=== PATIENT | male | born 1980 | race Caucasian/White ===

== ENCOUNTER 2016-07-21 16:26 | Inpatient (IN) | payer OTHER ==
[2016-07-21] MEDS ORDERED: ENOXAPARIN 150 MG/ML SYRINGE SQ STA (17:04)
[2016-07-21] MEDS ORDERED: DILTIAZEM 125 MG in SODIUM CHLORIDE 0.9% 100 ML IV STA (17:04)
[2016-07-21 17:21] LABS: Basophils % (A) 0 %; CH 30.6; CHCM 34.8; Eosinophils # (A) 0.1 k/uL (0-0.7); Eosinophils % (A) 1 %; HDW 2.71; HGB 17.6 gm/dL (13.0-17.5); Luc # (Auto) 0.22; Luc % (Auto) 2; Lymphocytes # (A) 1.9 k/uL (1.0-4.8); Lymphocytes % (A) 16 %; MCH 29.9 pg (25.0-35.0); MCHC 33.8 g/dL (31.0-37.0); MCV 88.4 fL (80.0-100.0); Monocytes # (A) 0.7 k/uL (0-1.0); Monocytes % (A) 6 %; Neutrophils # (A) 8.6 k/uL (1.3-7.7); Neutrophils % (A) 74 %; RBC 5.88 m/uL (4.30-5.90); RDW 13.5 % (11.5-15.5); WBC 11.6 k/uL (3.8-10.6); WBC (Perox) 11.89
[2016-07-21 17:28] LABS: INR 1.2 (<1.1); Partial Thromboplastin Time 23.4 sec (22.0-30.0); Prothrombin Time 11.6 sec (9.0-12.0)
[2016-07-21 17:34] LABS: ALT 39 U/L (21-72); AST 31 U/L (17-59); Alkaline Phosphatase 67 U/L (38-126); Anion Gap 11 mmol/L; Blood Urea Nitrogen 13 mg/dL (9-20); Calcium 9.4 mg/dL (8.4-10.2); Carbon Dioxide 26 mmol/L (22-30); Chloride 104 mmol/L (98-107); Glucose 113 mg/dL (74-99); Magnesium 1.7 mg/dL (1.6-2.3); Non-African American GFR(MDRD) >60 (>60 ml/min/1.73 sqM); Potassium 4.1 mmol/L (3.5-5.1); Sodium 141 mmol/L (137-145); Total Bilirubin 0.8 mg/dL (0.2-1.3); Total Protein 7.8 g/dL (6.3-8.2)
--- NOTE | 2016-07-21 17:35 | ED ---
General Adult HPI - General Chief complaint: Arrhythmia/Palpitations Stated complaint: Abnormal EKG Time Seen by Provider: 07/21/16 16:54 Source: patient Mode of arrival: wheelchair Limitations: no limitations - History of Present Illness Initial comments: This patient is a 35-year-old man who comes to be evaluated from his doctor's clinic. He had gone to see his physician regarding some generalized headaches and not feeling well for the past couple of days. When he was seen at the clinic they found his heart rate was rapid and irregular, they reportedly did an EKG that showed atrial fibrillation and sent here for further evaluation and treatment. The patient states that he has not had any chest symptoms, including no chest pain, dyspnea, palpitations, lightheadedness or syncope. He has not had nausea or vomiting. The patient does state that he just has not been feeling well and then he said a diffuse headache, though not worst headache of life. He has not had any neurologic symptoms. The patient has no known history of atrial fibrillation. -: days(s) Location: head Radiation: non-radiation Quality: dull Consistency: constant Improves with: none Worsens with: none Associated Symptoms: denies other symptoms Treatments Prior to Arrival: none - Related Data Home Medications Medication Instructions Recorded Confirmed Ascorbic Acid [Vitamin C] 1,000 mg PO DAILY 07/21/16 07/21/16 Cholecalciferol [Vitamin D3] 1,000 unit PO DAILY 07/21/16 07/21/16 FLUoxetine HCL [PROzac] 20 mg PO DAILY 07/21/16 07/21/16 Ibuprofen [Motrin] 600 mg PO Q8HR PRN 07/21/16 07/21/16 [place]-3 Fatty Acids/Fish Oil [Fish 1 cap PO DAILY 07/21/16 07/21/16 Oil 1,000 mg Softgel] Thiamine [Vitamin B-1] 100 mg PO DAILY 07/21/16 07/21/16 Allergies Allergy/AdvReac Type Severity Reaction Status Date / Time erythromycin base Allergy Rash/Hives Verified 07/21/16 17:07 Penicillins Allergy Rash/Hives Verified 07/21/16 17:07 Review of Systems ROS Statement: Those systems with pertinent positive or pertinent negative responses have been documented in the HPI. ROS Other: All systems not noted in ROS Statement are negative. Constitutional: Denies: fever, weakness Respiratory: Denies: cough, dyspnea Cardiovascular: Denies: chest pain, palpitations, orthopnea, syncope Gastrointestinal: Denies: abdominal pain, vomiting, diarrhea, melena, hematochezia Genitourinary: Denies: dysuria, hematuria Musculoskeletal: Denies: back pain Skin: Denies: rash Neurological: Reports: as per HPI, headache. Denies: weakness, numbness Past Medical History Past Medical History: No Reported History Additional Past Medical History / Comment(s): depression History of Any Multi-Drug Resistant Organisms: None Reported Past Surgical History: Hernia Repair Past Psychological History: Depression Smoking Status: Light tobacco smoker Past Alcohol Use History: Occasional Past Drug Use History: None Reported General Exam Limitations: no limitations General appearance: alert, in no apparent distress, obese Head exam: Present: atraumatic, normocephalic Eye exam: Present: normal appearance, PERRL, EOMI. Absent: scleral icterus, conjunctival injection, nystagmus ENT exam: Present: normal oropharynx Neck exam: Present: normal inspection. Absent: tenderness, meningismus Respiratory exam: Present: normal lung sounds bilaterally. Absent: respiratory distress, wheezes, rales, rhonchi, stridor, chest wall tenderness Cardiovascular Exam: Present: tachycardia, irregular rhythm, normal heart sounds. Absent: systolic murmur, diastolic murmur, rubs, gallop GI/Abdominal exam: Present: soft. Absent: distended, tenderness, guarding, rebound Extremities exam: Present: normal inspection, normal capillary refill. Absent: pedal edema, calf tenderness Neurological exam: Present: alert, oriented X3. Absent: motor sensory deficit Skin exam: Present: warm, dry, intact, normal color. Absent: rash Course Vital Signs 07/21/16 07/21/16 16:32 17:53 Temperature 98.4 F 99.3 F Pulse Rate 53 L 93 Respiratory 18 18 Rate Blood Pressure 141/84 124/60 O2 Sat by Pulse 95 99 Oximetry EKG Findings - EKG Results: EKG: interpreted by ERMD, normal axis, normal QRS, normal ST/T EKG shows: tachycardia (Rate 126 bpm), atrial fibrillation Medical Decision Making - Lab Data Result diagrams: 07/21/16 17:03 07/21/16 17:03 Lab Results 07/21/16 07/21/16 07/21/16 Range/Units 17:03 17:03 17:03 WBC 11.6 H (3.8-10.6) k/uL RBC 5.88 (4.30-5.90) m/uL Hgb 17.6 H (13.0-17.5) gm/dL Hct 52.0 (39.0-53.0) % MCV 88.4 (80.0-100.0) fL MCH 29.9 (25.0-35.0) pg MCHC 33.8 (31.0-37.0) g/dL RDW 13.5 (11.5-15.5) % Plt Count 291 (150-450) k/uL Neutrophils % 74 % Lymphocytes % 16 % Monocytes % 6 % Eosinophils % 1 % Basophils % 0 % Neutrophils # 8.6 H (1.3-7.7) k/uL Lymphocytes # 1.9 (1.0-4.8) k/uL Monocytes # 0.7 (0-1.0) k/uL Eosinophils # 0.1 (0-0.7) k/uL Basophils # 0.0 (0-0.2) k/uL PT (9.0-12.0) sec INR (<1.1) APTT (22.0-30.0) sec Sodium 141 (137-145) mmol/L Potassium 4.1 (3.5-5.1) mmol/L Chloride 104 (98-107) mmol/L Carbon Dioxide 26 (22-30) mmol/L Anion Gap 11 mmol/L BUN 13 (9-20) mg/dL Creatinine 0.70 (0.66-1.25) mg/dL Est GFR (MDRD) Af Amer >60 (>60 ml/min/1.73 sqM) Est GFR (MDRD) Non-Af >60 (>60 ml/min/1.73 sqM) Glucose 113 H (74-99) mg/dL Calcium 9.4 (8.4-10.2) mg/dL Magnesium 1.7 (1.6-2.3) mg/dL Total Bilirubin 0.8 (0.2-1.3) mg/dL AST 31 (17-59) U/L ALT 39 (21-72) U/L Alkaline Phosphatase 67 (38-126) U/L Total Creatine Kinase 46 L (55-170) U/L CK-MB (CK-2) 0.6 (0.0-2.4) ng/mL CK-MB (CK-2) Rel Index 1.3 Troponin I <0.012 (0.000-0.034) ng/mL Total Protein 7.8 (6.3-8.2) g/dL Albumin 4.0 (3.5-5.0) g/dL TSH 0.837 (0.465-4.680) mIU/L 07/21/16 Range/Units 17:03 WBC (3.8-10.6) k/uL RBC (4.30-5.90) m/uL Hgb (13.0-17.5) gm/dL Hct (39.0-53.0) % MCV (80.0-100.0) fL MCH (25.0-35.0) pg MCHC (31.0-37.0) g/dL RDW (11.5-15.5) % Plt Count (150-450) k/uL Neutrophils % % Lymphocytes % % Monocytes % % Eosinophils % % Basophils % % Neutrophils # (1.3-7.7) k/uL Lymphocytes # (1.0-4.8) k/uL Monocytes # (0-1.0) k/uL Eosinophils # (0-0.7) k/uL Basophils # (0-0.2) k/uL PT 11.6 (9.0-12.0) sec INR 1.2 (<1.1) APTT 23.4 (22.0-30.0) sec Sodium (137-145) mmol/L Potassium (3.5-5.1) mmol/L Chloride (98-107) mmol/L Carbon Dioxide (22-30) mmol/L Anion Gap mmol/L BUN (9-20) mg/dL Creatinine (0.66-1.25) mg/dL Est GFR (MDRD) Af Amer (>60 ml/min/1.73 sqM) Est GFR (MDRD) Non-Af (>60 ml/min/1.73 sqM) Glucose (74-99) mg/dL Calcium (8.4-10.2) mg/dL Magnesium (1.6-2.3) mg/dL Total Bilirubin (0.2-1.3) mg/dL AST (17-59) U/L ALT (21-72) U/L Alkaline Phosphatase (38-126) U/L Total Creatine Kinase (55-170) U/L CK-MB (CK-2) (0.0-2.4) ng/mL CK-MB (CK-2) Rel Index Troponin I (0.000-0.034) ng/mL Total Protein (6.3-8.2) g/dL Albumin (3.5-5.0) g/dL TSH (0.465-4.680) mIU/L Disposition Clinical Impression: Atrial fibrillation Disposition: ADMITTED IP TO THIS HOSP Condition: Fair
[2016-07-21 17:42] LABS: Creatine Kinase 46 U/L (55-170)
[2016-07-21 17:54] LABS: Creatine Kinase MB 0.6 ng/mL (0.0-2.4); Troponin I <0.012 ng/mL (0.000-0.034)
--- NOTE | 2016-07-21 18:04 | XR ---
EXAMINATION TYPE: XR chest 2V DATE OF EXAM: 07/21/2016 5:35 PM COMPARISON: NONE HISTORY: Abnormal cardiogram TECHNIQUE: Frontal and lateral views of the chest are obtained. FINDINGS: There is no heart failure nor confluent pneumonic infiltrate. There are no hilar masses. C ostophrenic angles are clear. There are chest leads. Bony thorax appears intact. IMPRESSION: Normal chest.
[2016-07-21] MEDS ORDERED: HEPARIN SODIUM,PORCINE 5,000 UNIT/ML 1 ML VIAL IV ONE (19:01)
[2016-07-21] MEDS ORDERED: NITROGLYCERIN SL TABS 0.4 MG TAB SUBLINGUAL PRN (19:01)
[2016-07-21] MEDS ORDERED: HEPARIN SODIUM,PORCINE 5,000 UNIT/ML 1 ML VIAL IV PRN (19:01)
[2016-07-21] MEDS: HEPARIN SODIUM,PORCINE/D5W PMX 25,000 UNIT in DEXTROSE/WATER 1 500ML.BAG IV SCH (19:44)
[2016-07-21 21:35] VITALS: BMI 53.0
[2016-07-21 23:23] LABS: Creatine Kinase 44 U/L (55-170)
[2016-07-21 23:37] LABS: Creatine Kinase MB 0.5 ng/mL (0.0-2.4); Troponin I <0.012 ng/mL (0.000-0.034)
[2016-07-22 06:04] LABS: Basophils # (A) 0.1 k/uL (0-0.2); Basophils % (A) 1 %; CH 29.1; CHCM 32.1; Eosinophils # (A) 0.1 k/uL (0-0.7); Eosinophils % (A) 1 %; HCT 47.7 % (39.0-53.0); HDW 2.59; HGB 15.5 gm/dL (13.0-17.5); Luc # (Auto) 0.32; Luc % (Auto) 3; Lymphocytes # (A) 2.4 k/uL (1.0-4.8); Lymphocytes % (A) 20 %; MCH 29.6 pg (25.0-35.0); MCHC 32.4 g/dL (31.0-37.0); MCV 91.2 fL (80.0-100.0); Mean Platelet Volume 6.4; Monocytes # (A) 0.7 k/uL (0-1.0); Monocytes % (A) 6 %; Neutrophils # (A) 8.5 k/uL (1.3-7.7); Neutrophils % (A) 70 %; RBC 5.23 m/uL (4.30-5.90); RDW 13.6 % (11.5-15.5); WBC 12.1 k/uL (3.8-10.6); WBC (Perox) 12.58
[2016-07-22 06:08] LABS: Cholesterol 141 mg/dL (<200); HDL Cholesterol 38 mg/dL (40-60); Triglycerides 87 mg/dL (<150)
[2016-07-22 06:15] LABS: Creatine Kinase 40 U/L (55-170)
[2016-07-22 06:28] LABS: Creatine Kinase MB 0.4 ng/mL (0.0-2.4); Troponin I <0.012 ng/mL (0.000-0.034)
[2016-07-22] MEDS ORDERED: ASPIRIN 325 MG TAB PO SCH (09:00)
[2016-07-22] MEDS ORDERED: NON-FORMULARY DRUG (Omega-3 Fatty Acids/Fish Oil [Fish Oil 1,000 Mg Softgel] 1 CAP) PO SCH (09:00)
[2016-07-22] MEDS: FLUoxetine HCL 20 MG CAP PO SCH (09:51)
[2016-07-22] MEDS: FAMOTIDINE 20 MG TAB PO SCH (09:51)
[2016-07-22] MEDS: METOPROLOL TARTRATE 25 MG TAB PO SCH ×2 (09:52→20:17)
[2016-07-22] MEDS: NICOTINE 14MG/24HR PATCH TRANSDERM SCH (09:52)
[2016-07-22] MEDS: ASCORBIC ACID 500 MG TAB PO SCH (11:46)
[2016-07-22] MEDS: THIAMINE 100 MG TAB PO SCH (11:47)
[2016-07-22] MEDS: CHOLECALCIFEROL 1,000 UNIT TAB PO SCH (11:47)
--- NOTE | 2016-07-22 11:54 | P.CRDCN ---
History of Present Illness Consult date: 07/22/16 Requesting physician: Benjamin Zuluaga Consult reason: atrial fibrillation Chief complaint: Headache History of present illness: This is a pleasant 35-year-old gentleman with no prior documented history of hypertension, no diabetes, no hyperlipidemia, pt. does smoke , morbidly obese, who states that he was experiencing a headache and for this reason he went to his primary care doctor for further evaluation. As she was performing his physical exam she noted that his heart rate was beating fast and irregular, EKG was performed which showed atrial fibrillation and he was directed to come to the emergency room for admission. A shunt states he never feels some palpitations, no chest discomfort, no shortness of breath. He does state occasionally that when he goes from a sitting to standing position he gets mildly dizzy. According to the patient, he does drink 2-3 energy drinks per day as well as Cola. EKG on admission here showed atrial fibrillation with a rapid ventricular response. Chest x-ray normal. B/P on arrival 140/80 with a heart rate in the 90s. White blood cell count level 11.6, hemoglobin 17.6, potassium 4.1, BUN 13, creatinine 0.7. Troponins negative3. Time of my examination this morning, patient continues to be in atrial fibrillation, heart rate in the 70s. On a Cardizem drip at 5 mg per hour along with the heparin drip. Past Medical History Past Medical History: No Reported History Additional Past Medical History / Comment(s): depression History of Any Multi-Drug Resistant Organisms: None Reported Past Surgical History: Hernia Repair Past Psychological History: Depression Smoking Status: Light tobacco smoker Past Alcohol Use History: Occasional Past Drug Use History: None Reported Medications and Allergies Home Medications Medication Instructions Recorded Confirmed Type Ascorbic Acid [Vitamin C] 1,000 mg PO DAILY 07/21/16 07/21/16 History Cholecalciferol [Vitamin D3] 1,000 unit PO DAILY 07/21/16 07/21/16 History FLUoxetine HCL [PROzac] 20 mg PO DAILY 07/21/16 07/21/16 History Ibuprofen [Motrin] 600 mg PO Q8HR PRN 07/21/16 07/21/16 History [place]-3 Fatty Acids/Fish Oil [Fish 1 cap PO DAILY 07/21/16 07/21/16 History Oil 1,000 mg Softgel] Thiamine [Vitamin B-1] 100 mg PO DAILY 07/21/16 07/21/16 History Allergies Allergy/AdvReac Type Severity Reaction Status Date / Time erythromycin base Allergy Rash/Hives Verified 07/21/16 17:07 Penicillins Allergy Rash/Hives Verified 07/21/16 17:07 Physical Exam Vitals: Vital Signs Temp Pulse Pulse Resp BP BP Pulse Ox 07/22/16 11:21 97.4 F L 74 16 125/82 96 07/22/16 08:00 97.9 F 62 14 126/77 96 07/22/16 04:00 76 18 106/57 99 07/22/16 00:00 97.5 F L 82 18 105/53 97 07/21/16 20:45 97.3 F L 74 18 123/70 95 07/21/16 19:48 98.0 F 92 18 98/55 98 Intake and Output 07/21/16 07/22/16 07/22/16 22:59 06:59 14:59 Intake Total 353 0 Output Total 500 Balance 353 -500 Intake: IV 160 Heparin Sodium,Porcine/ 160 D5w Pmx 25,000 unit In Dextrose/Water 1 500ml. bag @ 5.639 UNITS/KG/HR 20 mls/hr IV .Q24H [facility] Rx #:[id number] Intake, IV Titration 193 Amount Diltiazem 125 mg In 40 Sodium Chloride 0.9% 100 ml @ 5 MG/HR 5 mls/hr IV .Q24H STA Rx#:[id number] Heparin Sodium,Porcine/ 153 D5w Pmx 25,000 unit In Dextrose/Water 1 500ml. bag @ 5.639 UNITS/KG/HR 20 mls/hr IV .Q24H [facility] Rx #:[id number] Oral 0 Output: Urine 500 Other: Voiding Method Toilet Toilet Urinal Urinal Weight 177.355 kg 176.5 kg PHYSICAL EXAMINATION: HEENT: Head is atraumatic, normocephalic. Pupils equal, round. Neck is supple. There is no elevated jugular venous pressure. HEART EXAMINATION: [place] to S1-S2 irregularly irregular CHEST EXAMINATION: Lungs are clear to auscultation and precussion. No chest wall tenderness is noted on palpation or with deep breathing. ABDOMEN: Soft, obese, nontender. Bowel sounds are heard. No organomegaly noted. EXTREMITIES: 2+ peripheral pulses with trace evidence of peripheral edema and no calf tenderness noted. NEUROLOGIC patient is awake, alert and oriented -3. . Results 07/22/16 05:28 07/21/16 17:03 Cardiac Enzymes 07/21/16 07/22/16 Range/Units 22:37 05:28 CK-MB (CK-2) 0.5 0.4 (0.0-2.4) ng/mL Troponin I <0.012 <0.012 (0.000-0.034) ng/mL Coagulation 07/22/16 07/22/16 Range/Units 01:19 09:42 APTT 28.5 30.5 H (22.0-30.0) sec Lipids 07/22/16 Range/Units 05:28 Triglycerides 87 (<150) mg/dL Cholesterol 141 (<200) mg/dL HDL Cholesterol 38 L (40-60) mg/dL CBC 07/22/16 Range/Units 05:28 WBC 12.1 H (3.8-10.6) k/uL RBC 5.23 (4.30-5.90) m/uL Hgb 15.5 (13.0-17.5) gm/dL Hct 47.7 (39.0-53.0) % Plt Count 228 (150-450) k/uL Current Medications Generic Name Dose Route Start Last Admin Trade Name Freq PRN Reason Stop Dose Admin Ascorbic Acid 1,000 mg 07/22/16 12:00 Vitamin C PO DAILY@1200 [facility] Aspirin 325 mg 07/22/16 09:00 07/22/16 09:51 Aspirin PO 325 mg DAILY ABHISHEK Administration Cholecalciferol 1,000 unit 07/22/16 12:00 Vitamin D3 PO DAILY@1200 ABHIS[facility]K Famotidine 20 mg 07/22/16 09:00 07/22/16 09:51 Pepcid PO 20 mg DAILY ABHISHEK Administration Fluoxetine HCl 20 mg 07/22/16 09:00 07/22/16 09:51 Prozac PO 20 mg DAILY AB[facility]K Administration Heparin Sodium (Porcine) 0 unit 07/21/16 19:01 Heparin IV PER PROTOCOL PRN Low PTT Protocol Diltiazem HCl 125 mg/ Sodium 125 mls @ 5 mls/hr 07/21/16 17:04 07/21/16 17:21 Chloride IV 07/22/16 17:03 5 mg/hr .Q24H STA 5 mls/hr Protocol Administration 5 MG/HR Heparin Sodium/Dextrose 25,000 500 mls @ 20 mls/hr 07/21/16 19:15 07/22/16 03 :23 unit/ IV Solution IV 8.7 units/kg/hr .Q24H ABHISHEK 30.85 mls/hr Protocol Titration 5.639 UNITS/KG/HR Metoprolol Tartrate 25 mg 07/22/16 09:00 07/22/16 09:52 Lopressor PO 25 mg BID ABHISHEK Administration Nicotine 1 patch 07/22/16 09:00 07/22/16 09:52 Habitrol 14mg/24hr Patch TRANSDERM Not Given DAILY ABHISHEK Nitroglycerin 0.4 mg 07/21/16 19:01 Nitrostat SUBLINGUAL Q5M PRN Chest Pain Thiamine HCl 100 mg 07/22/16 12:00 Vitamin B-1 PO DAILY@1200 [facility] Intake and Output 07/21/16 07/22/16 07/22/16 22:59 06:59 14:59 Intake Total 353 0 Output Total 500 Balance 353 -500 Intake: IV 160 Heparin Sodium,Porcine/ 160 D5w Pmx 25,000 unit In Dextrose/Water 1 500ml. bag @ 5.639 UNITS/KG/HR 20 mls/hr IV .Q24H [facility] Rx #:[id number] Intake, IV Titration 193 Amount Diltiazem 125 mg In 40 Sodium Chloride 0.9% 100 ml @ 5 MG/HR 5 mls/hr IV .Q24H STA Rx#:[id number] Heparin Sodium,Porcine/ 153 D5w Pmx 25,000 unit In Dextrose/Water 1 500ml. bag @ 5.639 UNITS/KG/HR 20 mls/hr IV .Q24H [facility] Rx #:[id number] Oral 0 Output: Urine 500 Other: Voiding Method Toilet Toilet Urinal Urinal Weight 177.355 kg 176.5 kg 07/22/16 05:28 EKG Interpretations (text) EKG shows atrial fibrillation with a rapid ventricular response Assessment and Plan Plan: Assessment and plan #1 atrial fibrillation with rapid ventricular response, appears to be of new onset. #2 cardiac risk factors negative for hypertension, no diabetes, no hyperlipidemia,. Patient does drink 3-4 energy drinks a day. #3 obesity #4 nicotine dependence Plan We will obtain a free T4 and TSH level. Request echocardiogram with Doppler study be performed. Discontinue aspirin. Discontinue Cardizem drip and continue metoprolol tartrate 25 one tablet by mouth twice a day. Further recommendations to follow. DNP note has been reviewed, I agree with a documented findings and plan of care. Patient was seen and examined.
--- NOTE | 2016-07-22 12:10 | P.HPIM ---
<Kimberley Mann - Last Filed: 07/22/16 10:59> History of Present Illness H&P Date: 07/22/16 Chief Complaint: A-Fib This is a 35-year-old male with a history of obesity, depression, and obstructive sleep apnea. He is a patient of Dr. Cabrera. He presented to the clinic with a chief complaint of of headaches. During the exam he was found to have an irregular heart rate, an EKG was performed and showed atrial fibrillation with RVR. He was sent to the hospital for evaluation for new onset of A. fib with RVR. He reported for the last few weeks he has been waking up with a pounding headache that lasts throughout the day. He states the pain starts in the top of his head and extends down to the occipital lobe. He also reports some dizziness and photosensitivity. He has been taking Motrin and Tylenol but states it has not helped the headaches. He does have a CPAP machine at home for his sleep apnea and wears it about 5 nights a week but needs a new facemask for the machine. During his hospital stay, he was started on a heparin and Cardizem drip. Cardiology was consulted. He remains in atrial fibrillation and is currently rate controlled with a rate in the 70s. He has had 3 sets of troponins, all were negative. Chest x-ray showed no heart failure , no infiltrate, normal chest. Echo was completed but results are not back. Patient reports he is feeling well and denies any chest pain or shortness of breath. Review of Systems Constitutional: Reports daytime sleepiness, Denies as per HPI, Denies anorexia, Denies chills, Denies chronic headaches, Denies chronic pain, Denies fatigue, Denies fever, Denies lethargy, Denies malaise, Denies night sweats, Denies poor appetite, Denies sweats, Denies weakness, Denies weight gain, Denies weight loss Eyes: denies blurred vision, denies discharge, denies irritation, denies itching , denies pain, denies loss of vision Ears, nose, mouth and throat: Denies as per HPI, Denies ant. neck pain, Denies bleeding gums, Denies dental pain, Denies dysphagia, Denies epistaxis, Denies headache, Denies hoarseness, Denies mouth pain, Denies nasal congestion, Denies nasal discharge, Denies neck fullness/pressure, Denies neck lump, Denies nose pain, Denies odynophagia, Denies post-nasal drip, Denies sinus pain, Denies sinus pressure, Denies swelling in mouth, Denies swelling in throat, Denies sore throat, Denies vertigo, Denies voice changes Cardiovascular: Reports irregular heart beat, Reports palpitations, Reports rapid heart beat, Denies as per HPI, Denies chest pain, Denies claudication, Denies decreased exercise tolerance, Denies dyspnea on exertion, Denies edema, Denies high blood pressure, Denies leg edema, Denies lightheadedness, Denies orthopnea, Denies paroxysmal nocturnal dyspnea, Denies phlebitis, Denies shortness of breath, Denies syncope Respiratory: Denies as per HPI, Denies congestion, Denies cough, Denies cough with sputum, Denies dyspnea, Denies excessive sputum, Denies hemoptysis, Denies home oxygen, Denies pain, Denies pain on inspiration, Denies pleurisy, Denies respiratory infections, Denies sleep apnea, Denies snoring, Denies wheezing Gastrointestinal: Denies as per HPI, Denies abdominal pain, Denies belching, Denies bloating, Denies BRBPR, Denies change in bowel habits, Denies coffee ground emesis, Denies constipation, Denies diarrhea, Denies dyspepsia, Denies early satiety, Denies excessive gas, Denies heartburn, Denies hematemesis, Denies hematochezia, Denies indigestion, Denies jaundice, Denies lactose intolerance, Denies loss of appetite, Denies melena, Denies nausea, Denies vomiting Genitourinary: Denies as per HPI, Denies decreased libido, Denies difficulties fathering child, Denies discharge, Denies dysuria, Denies erectile dysfunction, Denies flank pain, Denies genital pain, Denies genital sores, Denies hematuria, Denies impotence, Denies incontinence, Denies kidney stones, Denies nocturia, Denies polyuria, Denies testicular lump, Denies testicular pain, Denies urinary frequency, Denies urinary hesitancy, Denies urinary retention Musculoskeletal: Reports arm numbness/tingling (hx of carpal tunnel), Denies as per HPI, Denies atrophy, Denies fractures, Denies frequent falls, Denies gait dysfunction, Denies hot joints, Denies leg numbness/tingling, Denies limitation of motion, Denies loss of height, Denies low back pain, Denies morning stiffness , Denies muscle cramps, Denies muscle weakness, Denies myalgias, Denies neck pain, Denies neck stiffness, Denies prior amputations, Denies redness of joints , Denies shooting arm pain, Denies shooting leg pain Musculoskeletal: bilateral: hand pain, hand stiffness, absent: ankle pain, ankle stiffness, ankle swelling, elbow pain, elbow stiffness, elbow swelling, foot pain, foot stiffness, foot swelling, hand swelling, hip pain, hip stiffness , hip swelling, knee pain, knee stiffness, knee swelling, shoulder pain, shoulder stiffness, shoulder swelling Integumentary: Denies as per HPI, Denies acne, Denies boils, Denies brittle nails, Denies change in hair/nails, Denies color changes, Denies darkening of skin, Denies depigmentation, Denies dryness, Denies foot/leg ulcers, Denies growths, Denies hirsutism, Denies lesions, Denies onychomycosis, Denies pruritus , Denies rash, Denies sores, Denies striae, Denies unusual bruising, Denies wounds Neurological: Reports headaches, Denies as per HPI, Denies aphasia, Denies ataxia, Denies balance difficulties, Denies burning pain, Denies change in mentation, Denies change in smell/taste, Denies change in speech, Denies confusion, Denies convulsions, Denies double vision, Denies gait dysfunction, Denies head injury, Denies hearing difficulties, Denies lack of coordination, Denies loss of vision, Denies memory loss, Denies migraines, Denies motor disturbance, Denies numbness, Denies paralysis, Denies paresthesias, Denies seizures, Denies sensory deficit, Denies spasticity, Denies syncope, Denies tic , Denies tingling, Denies transient paralysis, Denies tremors, Denies vertigo, Denies weakness, Denies visual changes Psychiatric: Reports depression, Reports insomnia, Denies as per HPI, Denies anhedonia, Denies anxiety, Denies anxiety attacks, Denies change in appetite, Denies change in libido, Denies change in sleep habits, Denies confusion, Denies difficulty concentrating, Denies disorientation, Denies hallucinations, Denies hopelessness, Denies hypersomnia, Denies irritability, Denies memory loss , Denies mood swings, Denies paranoia, Denies sadness/tearfulness, Denies sleep disturbances, Denies suicidal ideation Endocrine: Reports high blood sugars, Denies as per HPI, Denies cold intolerance , Denies deepening of the voice, Denies excessive sweating, Denies excessive thirst, Denies fatigue, Denies flushing, Denies heat intolerance, Denies increase in ring/shoe/hat size, Denies low blood sugars, Denies nocturia, Denies palpitations, Denies polydipsia, Denies polyphagia, Denies polyuria, Denies proptosis, Denies recent glucocorticoid use, Denies thyroid mass, Denies weight change Hematologic/Lymphatic: Denies as per HPI, Denies easy bleeding, Denies easy bruising, Denies lymphadenopathy, Denies lymphedema, Denies thrombophilia Allergic/Immunologic: Denies as per HPI, Denies allergic rhinitis, Denies anaphylaxis, Denies angioedema, Denies gluten intolerance, Denies persistent infections, Denies seasonal allergies, Denies urticaria, Denies wheezing Past Medical History Past Medical History: No Reported History, Sleep Apnea/CPAP/BIPAP Additional Past Medical History / Comment(s): depression History of Any Multi-Drug Resistant Organisms: None Reported Past Surgical History: Hernia Repair Past Psychological History: Depression Smoking Status: Light tobacco smoker Past Alcohol Use History: Occasional Past Drug Use History: None Reported - Past Family History Mother Family Medical History: Cancer (Lung and throat cancer at age 52) Father Family Medical History: No Reported History (alive and well) Medications and Allergies Home Medications Medication Instructions Recorded Confirmed Type Ascorbic Acid [Vitamin C] 1,000 mg PO DAILY 07/21/16 07/21/16 History Cholecalciferol [Vitamin D3] 1,000 unit PO DAILY 07/21/16 07/21/16 History FLUoxetine HCL [PROzac] 20 mg PO DAILY 07/21/16 07/21/16 History Ibuprofen [Motrin] 600 mg PO Q8HR PRN 07/21/16 07/21/16 History [place]-3 Fatty Acids/Fish Oil [Fish 1 cap PO DAILY 07/21/16 07/21/16 History Oil 1,000 mg Softgel] Thiamine [Vitamin B-1] 100 mg PO DAILY 07/21/16 07/21/16 History Allergies Allergy/AdvReac Type Severity Reaction Status Date / Time erythromycin base Allergy Rash/Hives Verified 07/21/16 17:07 Penicillins Allergy Rash/Hives Verified 07/21/16 17:07 Physical Exam Vitals: Vital Signs Temp Pulse Pulse Resp BP BP Pulse Ox 07/22/16 08:00 97.9 F 62 14 126/77 96 07/22/16 04:00 76 18 106/57 99 07/22/16 00:00 97.5 F L 82 18 105/53 97 07/21/16 20:45 97.3 F L 74 18 123/70 95 07/21/16 19:48 98.0 F 92 18 98/55 98 Intake and Output 07/21/16 07/22/16 07/22/16 22:59 06:59 14:59 Intake Total 353 0 Output Total 500 Balance 353 -500 Intake: IV 160 Heparin Sodium,Porcine/ 160 D5w Pmx 25,000 unit In Dextrose/Water 1 500ml. bag @ 5.639 UNITS/KG/HR 20 mls/hr IV .Q24H [facility] Rx #:[id number] Intake, IV Titration 193 Amount Diltiazem 125 mg In 40 Sodium Chloride 0.9% 100 ml @ 5 MG/HR 5 mls/hr IV .Q24H [facility] Rx#:[id number] Heparin Sodium,Porcine/ 153 D5w Pmx 25,000 unit In Dextrose/Water 1 500ml. bag @ 5.639 UNITS/KG/HR 20 mls/hr IV .Q24H [facility] Rx #:[id number] Oral 0 Output: Urine 500 Other: Voiding Method Toilet Toilet Urinal Urinal Weight 177.355 kg 176.5 kg General appearance: Patient is a 35-year-old male well-developed, well-nourished , no acute distress HEENT: Normocephalic, atraumatic, pupils equal round reactive to light, oropharynx is clear. Neck: Supple, trachea is midline, no lymphadenopathy, tenderness, or thyromegaly. Cardiovascular: Irregular rhythm, normal heart sounds. No S3 or S4. No systolic or diastolic murmur, rubs or gallop. GI: Abdomen is soft, distended due to obesity, positive bowel sounds, nontender , no masses, no rebound, no organomegaly. Extremities: No significant deformity, no joint abnormalities, no edema, peripheral pulses are intact, no calf tenderness Neurological: Cranial nerves II through XII are intact, strength and sensation symmetric and intact, patient is alert and oriented to person place and time. No focal defects noted. Skin: Warm dry and intact no rashes noted. Results CBC & Chem 7: 07/22/16 05:28 07/21/16 17:03 Labs: Abnormal Lab Results - Last 24 Hours (Table) 07/21/16 07/22/16 07/22/16 Range/Units 22:37 05:28 05:28 WBC 12.1 H (3.8-10.6) k/uL Neutrophils # 8.5 H (1.3-7.7) k/uL Total Creatine Kinase 44 L 40 L (55-170) U/L HDL Cholesterol (40-60) mg/dL 07/22/16 Range/Units 05:28 WBC (3.8-10.6) k/uL Neutrophils # (1.3-7.7) k/uL Total Creatine Kinase (55-170) U/L HDL Cholesterol 38 L (40-60) mg/dL Thrombosis Risk Factor Assmnt - DVT/VTE Prophylaxis DVT/VTE Prophylaxis: Pharmacologic Prophylaxis ordered - Choose All That Apply Any of the Below Risk Factors Present?: No Assessment and Plan (1) Atrial fibrillation Status: Acute Plan: Impression and plan: 1. Atrial fibrillation with RVR: Will start metoprolol 25 mg twice a day and plan to wean off Cardizem and heparin. Awaiting echo and Doppler results. Cardiology was consulted. 2. Obstructive sleep apnea: He'll continue to wear his CPAP at at bedtime, discussed being more compliant and obtaining a new facemask. 3. Hyperglycemia: Will continue to monitor. No history of diabetes. 4. Polycythemia: Most likely due to his obstructive sleep apnea, we'll continue to monitor. 5. Tobacco use: Discussed smoking cessation, nicotine patch is ordered. 6. GI prophylaxis: Continue Pepcid. 7. DVT prophylaxis: Continue heparin drip. <Benjamin Zuluaga - Last Filed: 07/22/16 16:03> Physical Exam Vitals: Vital Signs Temp Pulse Pulse Resp BP BP Pulse Ox 07/22/16 12:00 74 16 07/22/16 11:21 97.4 F L 74 16 125/82 96 07/22/16 08:00 97.9 F 62 14 126/77 96 07/22/16 04:00 76 18 106/57 99 07/22/16 00:00 97.5 F L 82 18 105/53 97 07/21/16 20:45 97.3 F L 74 18 123/70 95 07/21/16 19:48 98.0 F 92 18 98/55 98 Intake and Output 07/22/16 07/22/16 07/22/16 06:59 14:59 22:59 Intake Total 353 693.148 Output Total 500 Balance 353 193.148 Intake: IV 160 Heparin Sodium,Porcine/ 160 D5w Pmx 25,000 unit In Dextrose/Water 1 500ml. bag @ 5.639 UNITS/KG/HR 20 mls/hr IV .Q24H [facility] Rx #:[id number] Intake, IV Titration 193 333.148 Amount Diltiazem 125 mg In 40 Sodium Chloride 0.9% 100 ml @ 5 MG/HR 5 mls/hr IV .Q24H [facility] Rx#:[id number] Heparin Sodium,Porcine/ 153 333.148 D5w Pmx 25,000 unit In Dextrose/Water 1 500ml. bag @ 5.639 UNITS/KG/HR 20 mls/hr IV .Q24H [facility] Rx #:[id number] Oral 360 Output: Urine 500 Other: Voiding Method Toilet Toilet Urinal Urinal Weight 176.5 kg 176.5 kg Patient Weight 07/23/16 06:59 Weight 176.5 kg Results CBC & Chem 7: 07/22/16 05:28 07/21/16 17:03 Labs: Abnormal Lab Results - Last 24 Hours (Table) 07/21/16 07/22/16 07/22/16 Range/Units 22:37 05:28 05:28 WBC 12.1 H (3.8-10.6) k/uL Neutrophils # 8.5 H (1.3-7.7) k/uL APTT (22.0-30.0) sec Total Creatine Kinase 44 L 40 L (55-170) U/L HDL Cholesterol (40-60) mg/dL 07/22/16 07/22/16 Range/Units 05:28 09:42 WBC (3.8-10.6) k/uL Neutrophils # (1.3-7.7) k/uL APTT 30.5 H (22.0-30.0) sec Total Creatine Kinase (55-170) U/L HDL Cholesterol 38 L (40-60) mg/dL Assessment and Plan Plan: CODE STATUS: Full code. Expectation from this admission: Patient be in the hospital for 1-2 nights.
[2016-07-22] MEDS: HEPARIN SODIUM,PORCINE/D5W PMX 25,000 UNIT in DEXTROSE/WATER 1 500ML.BAG IV SCH (13:34)
[2016-07-23] MEDS: HEPARIN SODIUM,PORCINE/D5W PMX 25,000 UNIT in DEXTROSE/WATER 1 500ML.BAG IV SCH (01:30)
[2016-07-23 06:50] LABS: Basophils # (A) 0.1 k/uL (0-0.2); Basophils % (A) 1 %; CH 29.8; Eosinophils # (A) 0.1 k/uL (0-0.7); Eosinophils % (A) 1 %; HCT 47.8 % (39.0-53.0); HDW 2.57; HGB 15.7 gm/dL (13.0-17.5); Luc # (Auto) 0.32; Luc % (Auto) 3; Lymphocytes # (A) 2.5 k/uL (1.0-4.8); Lymphocytes % (A) 20 %; MCH 29.7 pg (25.0-35.0); MCHC 32.8 g/dL (31.0-37.0); MCV 90.6 fL (80.0-100.0); Mean Platelet Volume 6.3; Monocytes # (A) 0.7 k/uL (0-1.0); Monocytes % (A) 6 %; Neutrophils # (A) 8.6 k/uL (1.3-7.7); Neutrophils % (A) 70 %; RBC 5.27 m/uL (4.30-5.90); RDW 13.6 % (11.5-15.5); WBC 12.3 k/uL (3.8-10.6); WBC (Perox) 12.24
[2016-07-23] MEDS ORDERED: APIXABAN 5 MG TAB PO SCH (10:15)
[2016-07-23] MEDS: FLUoxetine HCL 20 MG CAP PO SCH (10:48)
[2016-07-23] MEDS: METOPROLOL TARTRATE 25 MG TAB PO SCH (10:48)
[2016-07-23] MEDS: NICOTINE 14MG/24HR PATCH TRANSDERM SCH (10:49)
[2016-07-23] MEDS: CHOLECALCIFEROL 1,000 UNIT TAB PO SCH (10:49)
[2016-07-23] MEDS: THIAMINE 100 MG TAB PO SCH (10:49)
[2016-07-23] MEDS: ASCORBIC ACID 500 MG TAB PO SCH (10:49)
[2016-07-23] MEDS: FAMOTIDINE 20 MG TAB PO SCH (10:50)
[2016-07-23 11:05] VITALS: BP 107/68; PULSE 56; RESP 19; TEMP 97
--- NOTE | 2016-07-23 11:07 | ECHOF ---
Referral Reason:new onset atrial fibrillation MEASUREMENTS -------- HEIGHT: 182.9 cm WEIGHT: 177.3 kg BP: 106/57 RVIDd: 1.4 cm (< 3.3) IVSd: 1.2 cm (0.6 - 1.1) LVIDd: 6.2 cm (3.9 - 5.3) LVPWd: 1.4 cm (0.6 - 1.1) IVSs: 1.7 cm LVIDs: 5.2 cm LVPWs: 1.8 cm LAESV Index (A-L): 22.85 ml/m Ao Diam: 3.8 cm (2.0 - 3.7) AV Cusp: 2.4 cm (1.5 - 2.6) LA Diam: 4.4 cm (2.7 - 3.8) MV EXCURSION: 18.547 mm (> 18.000) MV EF SLOPE: 80 mm/s (70 - 150) EPSS: 1.3 cm MV E Garry: 0.79 m/s MV DecT: 284 ms MV A Garry: 0.26 m/s MV E/A Ratio: 2.99 RAP: 5.00 mmHg RVSP: 10.57 mmHg FINDINGS -------- Atrial fibrillation. This was a technically difficult study with suboptimal views. The left ventricle is moderately dilated. There is mild concentric left ventricular hypertrophy. Overall left ventricular systolic function is moderate-severely impaired with, an EF between 30 - 35 %. The right ventricle is normal in size and function. Normal LA size by volume 22+/-6 ml/m2. The right atrium is normal in size. 1.5mg of Definity was utilized for enhancement of images The aortic valve was not well visualized. Mild mitral regurgitation is present. Trace tricuspid regurgitation present. There is no evidence of pulmonary hypertension. The right ventricular systolic pressure, as measured by Doppler, is 10.57mmHg. The pulmonic valve was not well visualized. The aortic root size is normal. There is no pericardial effusion. CONCLUSIONS -------- 1. Atrial fibrillation. 2. There is no evidence of pulmonary hypertension. 3. The right ventricular systolic pressure, as measured by Doppler, is 10.57mmHg. 4. The pulmonic valve was not well visualized. 5. The aortic root size is normal. 6. There is no pericardial effusion. 7. This was a technically difficult study with suboptimal views. 8. The left ventricle is moderately dilated. 9. There is mild concentric left ventricular hypertrophy. 10. Normal LA size by volume 22+/-6 ml/m2. 11. 1.5mg of Definity was utilized for enhancement of images 12. The aortic valve was not well visualized. 13. Mild mitral regurgitation is present. 14. Trace tricuspid regurgitation present. FAN BALANCER: Tristin Chan RDCS
--- NOTE | 2016-07-23 13:51 | P.PN ---
Subjective Principal diagnosis: New-onset atrial fibrillation This is a pleasant 35-year-old gentleman with no prior documented history of hypertension, no diabetes, no hyperlipidemia, pt. does smoke , morbidly obese, who states that he was experiencing a headache and for this reason he went to his primary care doctor for further evaluation. As she was performing his physical exam she noted that his heart rate was beating fast and irregular, EKG was performed which showed atrial fibrillation and he was directed to come to the emergency room for admission. EKG on arrival here showed atrial fibrillation with a rapid ventricular response. was initiated on Eliquis for anticoagulation. Lopressor 25 mg one tablet by mouth twice a day with a heart rate in the 70s. Pressure this morning 108/68. Echocardiogram with Doppler study was performed which revealed an ejection fraction of 30-35%. Overall patient feels well, denies any palpitations, no chest discomfort, no headache. Objective - Vital Signs Vital signs: Vital Signs Temp 97 F L 07/23/16 08:00 Pulse 56 L 07/23/16 08:00 Resp 19 07/23/16 08:00 BP 107/68 07/23/16 08:00 Pulse Ox 95 07/23/16 08:00 Intake & Output 07/22/16 07/23/16 07/23/16 18:59 06:59 18:59 Intake Total 693.148 724.000 624 Output Total 500 600 Balance 193.148 124.000 624 Weight 176.5 kg 176.8 kg Intake: IV 224 624 Heparin Sodium,Porcine/ 224 624 D5w Pmx 25,000 unit In Dextrose/Water 1 500ml. bag @ 5.639 UNITS/KG/HR 20 mls/hr IV .Q24H [facility] Rx #:[id number] Intake, IV Titration 333.148 500.000 Amount Heparin Sodium,Porcine/ 333.148 500.000 D5w Pmx 25,000 unit In Dextrose/Water 1 500ml. bag @ 5.639 UNITS/KG/HR 20 mls/hr IV .Q24H [facility] Rx #:[id number] Oral 360 Output: Urine 500 600 Other: Voiding Method Toilet Urinal # Voids 1 2 - Exam PHYSICAL EXAMINATION: HEENT: Head is atraumatic, normocephalic. Pupils equal, round. Neck is supple. There is no elevated jugular venous pressure. HEART EXAMINATION: Heart S1 and S2 irregularly irregular CHEST EXAMINATION: Lungs are clear to auscultation and precussion. No chest wall tenderness is noted on palpation or with deep breathing. ABDOMEN: Soft, obese, nontender. Bowel sounds are heard. No organomegaly noted. EXTREMITIES: 2+ peripheral pulses with no evidence of peripheral edema and no calf tenderness noted. NEUROLOGIC patient is awake, alert and oriented -3. . - Labs CBC & Chem 7: 07/23/16 05:42 07/21/16 17:03 Labs: Abnormal Lab Results - Last 24 Hours (Table) 07/22/16 07/23/16 07/23/16 Range/Units 18:10 00:20 05:42 WBC 12.3 H (3.8-10.6) k/uL Neutrophils # 8.6 H (1.3-7.7) k/uL APTT 39.4 H 48.3 H (22.0-30.0) sec Assessment and Plan Plan: Assessment and plan #1 atrial fibrillation with rapid ventricular response, paroxysmal. #2 cardiac risk factors negative for hypertension, no diabetes, no hyperlipidemia,. Patient does drink 3-4 energy drinks a day. #3 obesity #4 nicotine dependence #5 cardiomyopathy, likely secondary to A. fib with RVR. Plan From cardiology's perspective, we'll recommend to continue patient on Lopressor 25 mg one tablet by mouth twice a day along with Eliquis 5 mg one tablet by mouth twice a day. We will also start the patient on a low-dose GRACY inhibitor and Aldactone. A follow-up appointment will be made with Dr. Velasquez in the office post discharge. DNP note has been reviewed, I agree with a documented findings and plan of care. Patient was seen and examined.
--- NOTE | 2016-07-23 14:07 | P.DS ---
Providers Date of admission: 07/21/16 19:05 Expected date of discharge: 07/23/16 Attending physician: Benjamin Zuluaga Primary care physician: Paola Cabrera [facility] Course: This is a 35-year-old male with a history of obesity, depression, and obstructive sleep apnea. He is a patient of Dr. Cabrera. He presented to the clinic with a chief complaint of of headaches. During the exam he was found to have an irregular heart rate, an EKG was performed and showed atrial fibrillation with RVR. He was sent to the hospital for evaluation for new onset of A. fib with RVR. He reported for the last few weeks he has been waking up with a pounding headache that lasts throughout the day. He states the pain starts in the top of his head and extends down to the occipital lobe. He also reports some dizziness and photosensitivity. He has been taking Motrin and Tylenol but states it has not helped the headaches. He does have a CPAP machine at home for his sleep apnea and wears it about 5 nights a week but needs a new facemask for the machine. During his hospital stay, he was started on a heparin and Cardizem drip. Cardiology was consulted. He remains in atrial fibrillation and is currently rate controlled with a rate in the 70s. He has had 3 sets of troponins, all were negative. Chest x-ray showed no heart failure , no infiltrate, normal chest. Echo was completed but results are not back. Patient reports he is feeling well and denies any chest pain or shortness of breath. 07/23: Triglycerides 87, cholesterol 141, LDL 86, HDL 38. TSH 0.837. Echocardiogram reveals mild concentric left ventricular hypertrophy, mild mitral regurgitation, trace tricuspid regurgitation. Patient was started on eliquis and cardiology has cleared him for discharge home today. solutions manager has assisted patient with obtaining his medications due to cost the patient does not have insurance. Patient will be discharged home today in stable condition. Discharge diagnoses: 1. Atrial fibrillation with RVR, possible chronic atrial fibrillation 2. Obstructive sleep apnea 3. Hyperglycemia 4. Polycythemia: Most likely due to his obstructive sleep apnea 5. Tobacco use: Discussed smoking cessation Discharge plan: Return home Impression and plan of care have been directed as dictated by the signing physician. Rianna Conklin nurse practitioner acting as scribe for signing physician. Patient Condition at Discharge: Good Plan - Discharge Summary New Discharge Prescriptions: Apixaban [Eliquis] 5 mg PO BID #60 tab Metoprolol Tartrate [Lopressor] 25 mg PO BID #60 tab Nicotine 14Mg/24Hr Patch [Habitrol] 1 patch TRANSDERM DAILY #30 patch Discharge Medication List Ascorbic Acid [Vitamin C] 1,000 mg PO DAILY 07/21/16 [History] Cholecalciferol [Vitamin D3] 1,000 unit PO DAILY 07/21/16 [History] FLUoxetine HCL [PROzac] 20 mg PO DAILY 07/21/16 [History] Ibuprofen [Motrin] 600 mg PO Q8HR PRN 07/21/16 [History] [place]-3 Fatty Acids/Fish Oil [Fish Oil 1,000 mg Softgel] 1 cap PO DAILY [History] Thiamine [Vitamin B-1] 100 mg PO DAILY 07/21/16 [History] Apixaban [Eliquis] 5 mg PO BID #60 tab 07/23/16 [Rx] Metoprolol Tartrate [Lopressor] 25 mg PO BID #60 tab 07/23/16 [Rx] Nicotine 14Mg/24Hr Patch [Habitrol] 1 patch TRANSDERM DAILY #30 patch 07/23/16 [ Rx] Follow up Appointment(s)/Referral(s): Paola Cabrera MD [Primary Care Provider] - 07/30/16 11:45 am Oliver Hawkins MD [STAFF PHYSICIAN] - 1 Week (Office will call patient with appointment.) Patient Instructions/Handouts: Atrial Fibrillation (DC) Activity/Diet/Wound Care/Special Instructions: *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
== END 2016-07-23 11:31 | disposition home or self-care (01) | DRG 309 ==
LOC: EC 16:26 → 6SEL 19:05
PROVIDERS: ADMIT Internal Medicine Geriatric Medicine; ATTEND Internal Medicine Geriatric Medicine
DX: I48.2 Chronic atrial fibrillation (principal); Z68.43 Body mass index [BMI] 50.0-59.9, adult; I42.9 Cardiomyopathy, unspecified; D75.1 Secondary polycythemia; E66.9 Obesity, unspecified; G47.33 Obstructive sleep apnea (adult) (pediatric); F17.200 Nicotine dependence, unspecified, uncomplicated; F32.9 Major depressive disorder, single episode, unspecified; Z88.1 Allergy status to other antibiotic agents; Z88.0 Allergy status to penicillin; Z79.899 Other long term (current) drug therapy; I34.0 Nonrheumatic mitral (valve) insufficiency
CPT/HCPCS: 36415; 71020; 80053; 80061; 82550; 82553; 83735; 84443; 84484; 85025; 85610; 85730; 93005; 93306; 96365; 96366; 96367; 96372; 96376; 99285

== ENCOUNTER 2016-08-24 15:06 | Inpatient (IN) | payer OTHER ==
[2016-08-24] MEDS ORDERED: SODIUM CHLORIDE 0.9% 1,000 ML IV ONE (15:22)
--- NOTE | 2016-08-24 15:35 | ED ---
General Adult HPI - General Chief complaint: Dizziness Stated complaint: AFib Time Seen by Provider: 08/24/16 15:18 Source: patient, family, RN notes reviewed, old records reviewed Mode of arrival: wheelchair Limitations: no limitations - History of Present Illness Initial comments: 35-year-old male with a history of A. fib presenting for dizziness and near syncope. Patient states that he was diagnosed with new-onset A. fib about a month ago and was started on a beta elkin and Eliquis. 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 He was going to be evaluated for possible ablation. States however over the last 5 days he's had worsening dizziness that is present most of the time. He states he gets momentary episodes where he feels like his legs give out. He states today while he was walking down the stairs he had one of these episodes and lost his balance and fell partially down the stairs. States he was able to catch himself and did not sustain any injury. He denies head or neck injury. He denies loss consciousness. He denies any chest pain associated. However he does state he feels intermittent shortness of breath. He denies any fevers or chills. - Related Data Home Medications Medication Instructions Recorded Confirmed Cholecalciferol [Vitamin D3] 1,000 unit PO DAILY 07/21/16 08/24/16 [place]-3 Fatty Acids/Fish Oil [Fish 1 cap PO DAILY 07/21/16 08/24/16 Oil 1,000 mg Softgel] FLUoxetine HCL [PROzac] 40 mg PO DAILY 08/24/16 08/24/16 Glucosam/Nicolas-Msm1/C/Jatinder/Bosw 1 tab PO DAILY 08/24/16 08/24/16 [Glucosamine-Chondroitin Tablet] Multivitamins, Thera [Multivitamin 1 tab PO DAILY 08/24/16 08/24/16 (formulary)] Vitamin B Complex 1 cap PO DAILY 08/24/16 08/24/16 Previous Rx's Medication Instructions Recorded Apixaban [Eliquis] 5 mg PO BID #60 tab 07/23/16 Metoprolol Tartrate [Lopressor] 25 mg PO BID #60 tab 07/23/16 Allergies Allergy/AdvReac Type Severity Reaction Status Date / Time erythromycin base Allergy Rash/Hives Verified 08/24/16 15:49 Penicillins Allergy Rash/Hives Verified 08/24/16 15:49 Review of Systems ROS Statement: Those systems with pertinent positive or pertinent negative responses have been documented in the HPI. ROS Other: All systems not noted in ROS Statement are negative. Past Medical History Past Medical History: Atrial Fibrillation, Sleep Apnea/CPAP/BIPAP Additional Past Medical History / Comment(s): depression History of Any Multi-Drug Resistant Organisms: None Reported Past Surgical History: Hernia Repair Past Psychological History: Depression Smoking Status: Former smoker Past Alcohol Use History: Occasional Past Drug Use History: None Reported - Past Family History Mother Family Medical History: Cancer (Lung and throat cancer at age 52) Father Family Medical History: No Reported History (alive and well) General Exam - General Exam Comments Initial Comments: General: Awake and Alert. No acute distress. Does not appear acutely ill. Obese. Eyes: MIGUEL A, EOM intact. No nystagmus. No scleral icterus. HENT: Atraumatic, normocephalic. Mucous membranes moist. Trachea midline. Neck: The neck is supple, there is no tenderness or JVD. Cardiovascular: Regular rate and irregular rhythm. No murmur, rub, or gallop is appreciated. Distal pulses intact. Respiratory: Lungs are clear to auscultation bilaterally. No wheezes, rales, rhonchi. No respiratory distress. Gastrointestinal: Soft, Nontender. No rebound or guarding. Non-distended. No masses or organomegaly noted. No CVA tenderness. Musculoskeletal: No tenderness. Normal ROM. No gross deformity. No strength deficits. Neurological: A&Ox3. CN II-XII grossly intact, There are no obvious motor or sensory deficits. Coordination appears grossly intact. Speech is normal. Skin: Skin is warm and dry and no rashes or lesions are noted. Psychiatric: Cooperative, appropriate mood & affect, normal judgment. Limitations: no limitations Course Vital Signs 08/24/16 08/24/16 08/24/16 15:10 15:23 16:42 Temperature 97.8 F Pulse Rate 55 L 85 Pulse Rate [ 79 Sitting] Pulse Rate [ 82 Standing] Pulse Rate [ 72 Supine] Respiratory 20 Rate Blood Pressure 111/70 122/63 Blood Pressure 102/70 [Sitting] Blood Pressure 145/93 [Standing] Blood Pressure 90/54 [Supine] O2 Sat by Pulse 96 96 Oximetry 08/24/16 08/24/16 17:31 17:59 Temperature 97.9 F Pulse Rate 87 71 Pulse Rate [ Sitting] Pulse Rate [ Standing] Pulse Rate [ Supine] Respiratory 20 Rate Blood Pressure 117/66 119/56 Blood Pressure [Sitting] Blood Pressure [Standing] Blood Pressure [Supine] O2 Sat by Pulse 98 99 Oximetry EKG Findings - EKG Comments: EKG Findings:: EKG 15:21. A. fib. Rate 77. Incomplete right bundle branch block. No STEMI. Nonspecific EKG. Similar to prior EKG 07/22/2016. Medical Decision Making - Medical Decision Making 35-year-old male presenting for dizziness, near syncope, and shortness of breath. Patient with recent diagnosis of A. fib. Was started on metoprolol and Eliquis for this. Also noted in prior records to have an EF of 30-35% on ECHO one month ago. Lab work and imaging ordered. Patient noted to be hypotensive while laying flat during orthostatic vitals. Chest x-ray no acute process Lab work was stable CBC, stable BMP. BNP elevated. Initial troponin negative. Patient reevaluated, remained stable. Updated on results and imaging. Discussed plan for admission for cardiology evaluation. Patient and are agreeable to this. Spoke with Dr. Cabrera agrees with plan for admission for cardiology evaluation. - Lab Data Result diagrams: 08/24/16 15:50 08/24/16 15:50 Lab Results 08/24/16 08/24/16 08/24/16 Range/Units 15:50 15:50 15:50 WBC 10.5 (3.8-10.6) k/uL RBC 5.68 (4.30-5.90) m/uL Hgb 16.7 (13.0-17.5) gm/dL Hct 50.5 (39.0-53.0) % MCV 88.9 (80.0-100.0) fL MCH 29.4 (25.0-35.0) pg MCHC 33.1 (31.0-37.0) g/dL RDW 13.9 (11.5-15.5) % Plt Count 276 (150-450) k/uL Neutrophils % 71 % Lymphocytes % 20 % Monocytes % 6 % Eosinophils % 1 % Basophils % 0 % Neutrophils # 7.4 (1.3-7.7) k/uL Lymphocytes # 2.1 (1.0-4.8) k/uL Monocytes # 0.6 (0-1.0) k/uL Eosinophils # 0.1 (0-0.7) k/uL Basophils # 0.0 (0-0.2) k/uL PT (9.0-12.0) sec INR (<1.1) Sodium 139 (137-145) mmol/L Potassium 4.4 (3.5-5.1) mmol/L Chloride 104 (98-107) mmol/L Carbon Dioxide 26 (22-30) mmol/L Anion Gap 9 mmol/L BUN 14 (9-20) mg/dL Creatinine 0.77 (0.66-1.25) mg/dL Est GFR (MDRD) Af Amer >60 (>60 ml/min/1.73 sqM) Est GFR (MDRD) Non-Af >60 (>60 ml/min/1.73 sqM) Glucose 97 (74-99) mg/dL Calcium 9.4 (8.4-10.2) mg/dL Magnesium 2.0 (1.6-2.3) mg/dL CK-MB (CK-2) 0.2 (0.0-2.4) ng/mL Troponin I <0.012 (0.000-0.034) ng/mL NT-Pro-B Natriuret Pep pg/mL 08/24/16 08/24/16 Range/Units 15:50 15:50 WBC (3.8-10.6) k/uL RBC (4.30-5.90) m/uL Hgb (13.0-17.5) gm/dL Hct (39.0-53.0) % MCV (80.0-100.0) fL MCH (25.0-35.0) pg MCHC (31.0-37.0) g/dL RDW (11.5-15.5) % Plt Count (150-450) k/uL Neutrophils % % Lymphocytes % % Monocytes % % Eosinophils % % Basophils % % Neutrophils # (1.3-7.7) k/uL Lymphocytes # (1.0-4.8) k/uL Monocytes # (0-1.0) k/uL Eosinophils # (0-0.7) k/uL Basophils # (0-0.2) k/uL PT 12.1 H (9.0-12.0) sec INR 1.2 (<1.1) Sodium (137-145) mmol/L Potassium (3.5-5.1) mmol/L Chloride (98-107) mmol/L Carbon Dioxide (22-30) mmol/L Anion Gap mmol/L BUN (9-20) mg/dL Creatinine (0.66-1.25) mg/dL Est GFR (MDRD) Af Amer (>60 ml/min/1.73 sqM) Est GFR (MDRD) Non-Af (>60 ml/min/1.73 sqM) Glucose (74-99) mg/dL Calcium (8.4-10.2) mg/dL Magnesium (1.6-2.3) mg/dL CK-MB (CK-2) (0.0-2.4) ng/mL Troponin I (0.000-0.034) ng/mL NT-Pro-B Natriuret Pep 306 pg/mL - EKG Data Rate: normal When compared to previous EKG there are: no significant change Interpretation: no acute changes - Radiology Data Radiology results: report reviewed, image reviewed Disposition Clinical Impression: Dizziness, Hypotension, Afib, Systolic heart failure, SOB (shortness of breath) , Near syncope Disposition: ADMITTED IP TO THIS [facility] Condition: Stable Decision to Admit Reason: Admit from EC
[2016-08-24 16:05] LABS: Basophils % (A) 0 %; CH 30.6; CHCM 34.6; Eosinophils # (A) 0.1 k/uL (0-0.7); Eosinophils % (A) 1 %; HCT 50.5 % (39.0-53.0); HDW 2.65; HGB 16.7 gm/dL (13.0-17.5); Luc # (Auto) 0.23; Luc % (Auto) 2; Lymphocytes # (A) 2.1 k/uL (1.0-4.8); Lymphocytes % (A) 20 %; MCH 29.4 pg (25.0-35.0); MCHC 33.1 g/dL (31.0-37.0); MCV 88.9 fL (80.0-100.0); Monocytes # (A) 0.6 k/uL (0-1.0); Monocytes % (A) 6 %; Neutrophils # (A) 7.4 k/uL (1.3-7.7); Neutrophils % (A) 71 %; RBC 5.68 m/uL (4.30-5.90); RDW 13.9 % (11.5-15.5); WBC 10.5 k/uL (3.8-10.6); WBC (Perox) 9.42
[2016-08-24 16:15] LABS: Anion Gap 9 mmol/L; Blood Urea Nitrogen 14 mg/dL (9-20); Calcium 9.4 mg/dL (8.4-10.2); Carbon Dioxide 26 mmol/L (22-30); Chloride 104 mmol/L (98-107); Glucose 97 mg/dL (74-99); Non-African American GFR(MDRD) >60 (>60 ml/min/1.73 sqM); Potassium 4.4 mmol/L (3.5-5.1); Sodium 139 mmol/L (137-145)
[2016-08-24 16:17] LABS: INR 1.2 (<1.1); Prothrombin Time 12.1 sec (9.0-12.0)
[2016-08-24 16:40] LABS: Creatine Kinase MB 0.2 ng/mL (0.0-2.4); Troponin I <0.012 ng/mL (0.000-0.034)
[2016-08-24] MEDS ORDERED: NITROGLYCERIN SL TABS 0.4 MG TAB SUBLINGUAL PRN (17:04)
[2016-08-24] MEDS ORDERED: ASPIRIN 81 MG CHEW PO STA (17:07)
--- NOTE | 2016-08-24 17:09 | XR ---
EXAMINATION TYPE: XR chest 2V DATE OF EXAM: 08/24/2016 COMPARISON: 07/21/2016 HISTORY: Chest pain TECHNIQUE: Frontal and lateral views of the chest are obtained. FINDINGS: There is no heart failure nor confluent pneumonic infiltrate. There are no hilar masses. C ostophrenic angles are clear. There are chest leads. Bony thorax is intact. IMPRESSION: No active cardiopulmonary disease. No change.
[2016-08-24] MEDS ORDERED: SODIUM CHLORIDE 0.9% 1,000 ML IV SCH (17:15)
[2016-08-24 18:55] VITALS: BMI 52.8
[2016-08-24] MEDS: APIXABAN 5 MG TAB PO SCH (20:14)
[2016-08-24] MEDS: SODIUM CHLORIDE 0.9% 1,000 ML IV SCH (20:14)
[2016-08-24 22:11] LABS: Creatine Kinase 31 U/L (55-170)
[2016-08-24 22:24] LABS: Creatine Kinase MB 0.3 ng/mL (0.0-2.4); Troponin I <0.012 ng/mL (0.000-0.034)
[2016-08-25 04:20] LABS: Creatine Kinase 35 U/L (55-170)
[2016-08-25 04:21] LABS: Cholesterol 146 mg/dL (<200); HDL Cholesterol 33 mg/dL (40-60); Triglycerides 76 mg/dL (<150)
[2016-08-25 04:32] LABS: Creatine Kinase MB 0.3 ng/mL (0.0-2.4); Troponin I <0.012 ng/mL (0.000-0.034)
[2016-08-25] MEDS: APIXABAN 5 MG TAB PO SCH ×2 (08:26→21:24)
[2016-08-25] MEDS: MULTIVITAMINS, THERA 1 EACH TAB PO SCH (08:26)
[2016-08-25] MEDS: FLUoxetine HCL 20 MG CAP PO SCH (08:26)
[2016-08-25] MEDS: B COMPLEX-VIT C-VIT E-ZINC 1 EACH TAB PO SCH (08:26)
[2016-08-25] MEDS: CHOLECALCIFEROL 1,000 UNIT TAB PO SCH (08:27)
[2016-08-25] MEDS ORDERED: NON-FORMULARY DRUG (Omega-3 Fatty Acids/Fish Oil [Fish Oil 1,000 Mg Softgel] 1 CAP) PO SCH (09:00)
[2016-08-25] MEDS ORDERED: NON-FORMULARY DRUG (Glucosam/Chon-Msm1/C/Mang/Bosw [Glucosamine-Chondroitin Tablet] 1 TAB) PO SCH (09:00)
[2016-08-25] MEDS ORDERED: ASPIRIN 325 MG TAB PO SCH (09:00)
--- NOTE | 2016-08-25 10:16 | P.PN ---
Progress Note - Text This is an addendum to the dictated cardiology consultation. The patient has a history of atrial fibrillation diagnosed one months who presents with symptoms dyspnea, fatigue and dizziness. He is in atrial fibrillation on the monitor with no evidence of significant tachycardia or bradycardia. During his last visit his echocardiogram showed a moderately to severely impaired systolic function of unknown etiology. The patient has no symptoms of chest discomfort. He has a history of obstructive sleep apnea and has been using his CPAP. He has been compliant with his medication and has been taking his anticoagulant on a regular basis. I have recommended to proceed with a RENATO cardioversion in the morning sinus mechanism and improve his systolic function. The risks and the complications of the procedure were discussed with the patient. The procedure will be done by Dr. Hawkins. Thank you for this consult we will follow with you.
--- NOTE | 2016-08-25 10:32 | P.CRDCN ---
History of Present Illness Consult date: 08/25/16 Reason for Consult (text): This is a pleasant 35-year-old gentleman with a history of obstructive sleep apnea and uses CPAP, obesity and recently diagnosed atrial fibrillation. Presents to Hospital with complaints of dizziness, shortness of breath and weakness. He was recently hospitalized a month ago with similar symptoms and was newly diagnosed with atrial fibrillation and cardiomyopathy with an ejection fraction of 30-35%. At that time patient had been consuming about 3-4 energy drinks a day and was occurring every day smoker. He was discharged home on Eliquis and metoprolol. He has been compliant with his medications, compliant with CPAP and has stopped drinking energy drinks. He has cut down significantly on smoking, smoking a few cigarettes per week. EKG on admission showed a fibrillation with a controlled ventricular response. Chest x-ray showed no active cardiopulmonary disease, no change from previous. Labs were essentially unremarkable with troponins less than 0.0123 and a proBNP of 306. Normal renal function. On examination he is resting comfortably in bed. He has no current complaints of dizziness or shortness of breath. He denies complete of chest discomfort or palpitations. Past Medical History Past Medical History: Atrial Fibrillation, Sleep Apnea/CPAP/BIPAP Additional Past Medical History / Comment(s): depression History of Any Multi-Drug Resistant Organisms: None Reported Past Surgical History: Hernia Repair Past Psychological History: Depression Smoking Status: Former smoker Past Alcohol Use History: Occasional Past Drug Use History: None Reported - Past Family History Mother Family Medical History: Cancer (Lung and throat cancer at age 52) Additional Family Medical History / Comment(s): Mother at age 52 from lung and throat cancer. Father Family Medical History: No Reported History (alive and well) Additional Family Medical History / Comment(s): Father is alive with no significant health problems. Medications and Allergies Home Medications Medication Instructions Recorded Confirmed Type Cholecalciferol [Vitamin D3] 1,000 unit PO DAILY 07/21/16 08/24/16 History [place]-3 Fatty Acids/Fish Oil [Fish 1 cap PO DAILY 07/21/16 08/24/16 History Oil 1,000 mg Softgel] FLUoxetine HCL [PROzac] 40 mg PO DAILY 08/24/16 08/24/16 History Glucosam/Nicolas-Msm1/C/Jatinder/Bosw 1 tab PO DAILY 08/24/16 08/24/16 History [Glucosamine-Chondroitin Tablet] Multivitamins, Thera [Multivitamin 1 tab PO DAILY 08/24/16 08/24/16 History (formulary)] Vitamin B Complex 1 cap PO DAILY 08/24/16 08/24/16 History Allergies Allergy/AdvReac Type Severity Reaction Status Date / Time erythromycin base Allergy Rash/Hives Verified 08/24/16 15:49 Penicillins Allergy Rash/Hives Verified 08/24/16 15:49 Physical Exam Vitals: Vital Signs Temp Pulse Pulse Pulse Pulse Resp BP 08/25/16 08:00 80 66 18 08/25/16 07:38 97 F L 76 18 08/25/16 04:00 97.2 F L 55 L 18 08/25/16 00:00 76 18 08/24/16 20:00 97.8 F 70 20 08/24/16 18:23 98.6 F 80 20 08/24/16 17:59 97.9 F 71 20 119/56 08/24/16 17:31 87 117/66 08/24/16 16:42 79 82 72 08/24/16 15:23 85 122/63 08/24/16 15:10 97.8 F 55 L 20 111/70 BP BP BP Pulse Ox 08/25/16 08:00 103/64 95 08/25/16 07:38 112/65 96 08/25/16 04:00 108/60 97 08/25/16 00:00 120/72 96 08/24/16 20:00 123/71 08/24/16 18:23 110/73 08/24/16 17:59 99 08/24/16 17:31 98 08/24/16 16:42 102/70 145/93 90/54 08/24/16 15:23 96 08/24/16 15:10 96 Intake and Output 08/24/16 08/25/16 08/25/16 22:59 06:59 14:59 Intake Total 450 Balance 450 Intake: Intake, IV Titration 450 Amount Sodium Chloride 0.9% 1, 450 000 ml @ 75 mls/hr IV . [id number] [facility] Rx#:[id number] Other: Weight 176.8 kg 176.5 kg PHYSICAL EXAMINATION: HEENT: Head is atraumatic, normocephalic. Pupils equal, round. Neck is supple. There is no elevated jugular venous pressure. HEART EXAMINATION: Heart sounds irregularly irregular, S1 and S2 normal. No murmur or gallop heard. CHEST EXAMINATION: Lungs are clear to auscultation and precussion. No chest wall tenderness is noted on palpation or with deep breathing. ABDOMEN: Soft, obese, nontender. Bowel sounds are heard. No organomegaly noted. EXTREMITIES: 2+ peripheral pulses with no evidence of peripheral edema and no calf tenderness noted. NEUROLOGIC patient is awake, alert and oriented x3. . Results 08/24/16 15:50 08/24/16 15:50 Cardiac Enzymes 08/24/16 08/24/16 08/25/16 Range/Units 15:50 21:29 03:43 CK-MB (CK-2) 0.2 0.3 0.3 (0.0-2.4) ng/mL Troponin I <0.012 <0.012 <0.012 (0.000-0.034) ng/mL Coagulation 08/24/16 Range/Units 15:50 PT 12.1 H (9.0-12.0) sec Lipids 08/25/16 Range/Units 03:43 Triglycerides 76 (<150) mg/dL Cholesterol 146 (<200) mg/dL HDL Cholesterol 33 L (40-60) mg/dL CBC 08/24/16 Range/Units 15:50 WBC 10.5 (3.8-10.6) k/uL RBC 5.68 (4.30-5.90) m/uL Hgb 16.7 (13.0-17.5) gm/dL Hct 50.5 (39.0-53.0) % Plt Count 276 (150-450) k/uL Comprehensive Metabolic Panel 08/24/16 Range/Units 15:50 Sodium 139 (137-145) mmol/L Potassium 4.4 (3.5-5.1) mmol/L Chloride 104 (98-107) mmol/L Carbon Dioxide 26 (22-30) mmol/L BUN 14 (9-20) mg/dL Creatinine 0.77 (0.66-1.25) mg/dL Glucose 97 (74-99) mg/dL Calcium 9.4 (8.4-10.2) mg/dL Current Medications Generic Name Dose Route Start Last Admin Trade Name Freq PRN Reason Stop Dose Admin Apixaban 5 mg 08/24/16 21:00 08/25/16 08:26 Eliquis PO 5 mg BID BAHISHEK Administration Aspirin 325 mg 08/25/16 09:00 08/25/16 08:26 Aspirin PO 325 mg DAILY ABHISHEK Administration Cholecalciferol 1,000 unit 08/25/16 09:00 08/25/16 08:27 Vitamin D3 PO 1,000 unit DAILY ABHISHEK Administration Famotidine 20 mg 08/25/16 09:15 Pepcid PO DAILY ABHISHEK Fluoxetine HCl 40 mg 08/25/16 09:00 08/25/16 08:26 Prozac PO 40 mg DAILY ABHISHEK Administration Sodium Chloride 1,000 mls @ 75 mls/hr 08/24/16 20:15 08/24/16 20:14 Saline 0.9% IV 75 mls/hr .[id number] ABHISHEK Administration Multivitamins 1 each 08/25/16 12:00 08/25/16 08:26 Theragran PO 1 each DAILY@1200 ABHISHEK Administration Nitroglycerin 0.4 mg 08/24/16 17:04 Nitrostat SUBLINGUAL Q5M PRN Chest Pain Vitamin B Complex/Vit C/Vit E/Zinc 1 each 08/25/16 09:00 08/25/16 08:26 Z-Bec PO 1 each DAILY ABHISHEK Administration Intake and Output 08/24/16 08/25/16 08/25/16 22:59 06:59 14:59 Intake Total 450 Balance 450 Intake: Intake, IV Titration 450 Amount Sodium Chloride 0.9% 1, 450 000 ml @ 75 mls/hr IV . [id number] [facility] Rx#:[id number] Other: Weight 176.8 kg 176.5 kg 08/24/16 15:50 08/24/16 15:50 EKG Interpretations (text) Atrial fibrillation with controlled ventricular response, incomplete right bundle branch block Assessment and Plan Plan: Assessment and plan #1 persistent atrial fibrillation, symptomatic #2 obesity #3 obstructive sleep apnea, with CPAP #4 cardiomyopathy, ejection fraction 30-35% #5 nicotine dependence From a cardiac standpoint, we will resume metoprolol. We will start the patient on a small dose of lisinopril. Discussed with Dr. Hawkins and he will proceed with RENATO and cardioversion tomorrow. Further recommendations to follow. [employer] note has been reviewed, I agree with a documented findings and plan of care. Patient was seen and examined.
[2016-08-25] MEDS: SODIUM CHLORIDE 0.9% 1,000 ML IV SCH ×2 (10:42→10:43)
[2016-08-25] MEDS: FAMOTIDINE 20 MG TAB PO SCH (11:13)
--- NOTE | 2016-08-25 13:51 | P.HPIM ---
History of Present Illness H&P Date: 08/25/16 Chief Complaint: Near syncope, dizziness This is a 35-year-old male with a history of morbid obesity, depression, and obstructive sleep apnea. He is a patient of Dr. Cabrera. He was recently hospitalized July 22 for atrial fibrillation with RVR he was started on metoprolol and eliquis and was seen by Dr. Hawkins. Echocardiogram gram revealed mild concentric left ventricular hypertrophy, mild mitral regurgitation, trace tricuspid regurgitation and EF of 30-35%. Since that hospitalization, patient states that he has stopped smoking and stopped taking energy drinks. He also states that he has been taking his medications as directed. He denies any blood or black stools, no recent medication changes. Patient has not followed up with cardiology due to scheduling issues. He complains of 5 days of worsening dizziness and lightheadedness and he feels like his legs will give out. He had one of these episodes while walking down the stairs and lost his balance and fell partially down the stairs. He was able to catch himself and did not have any injuries. There was no loss of consciousness. He does complain of intermittent shortness of breath. No fever or chills. Chest x-ray showed no acute abnormality. EKG was atrial fibrillation rate of 77. He does have a CPAP machine at home for his sleep apnea and and has had the facemask repaired since last admission. Due to hypotension, metoprolol was held last evening and subsequently resumed this morning. He has been seen by cardiology with plan for RENATO and cardioversion tomorrow. Review of Systems All systems: negative Constitutional: Denies chills, Denies fever Eyes: denies blurred vision, denies pain Ears, nose, mouth and throat: Reports vertigo, Denies headache, Denies sore throat Cardiovascular: Reports decreased exercise tolerance, Reports dyspnea on exertion, Reports lightheadedness, Reports shortness of breath, Denies chest pain, Denies syncope Respiratory: Denies cough Gastrointestinal: Denies abdominal pain, Denies diarrhea, Denies nausea, Denies vomiting Musculoskeletal: Denies myalgias Integumentary: Denies pruritus, Denies rash Neurological: Denies numbness, Denies weakness Psychiatric: Denies anxiety, Denies depression Endocrine: Denies fatigue, Denies weight change Past Medical History Past Medical History: Atrial Fibrillation, Sleep Apnea/CPAP/BIPAP Additional Past Medical History / Comment(s): depression History of Any Multi-Drug Resistant Organisms: None Reported Past Surgical History: Hernia Repair Past Psychological History: Depression Smoking Status: Former smoker Past Alcohol Use History: Occasional Additional Past Alcohol Use History / Comment(s): Patient quit smoking in July 2016. He denies any marijuana or street drug use. No alcohol abuse. Past Drug Use History: None Reported - Past Family History Mother Family Medical History: Cancer (Lung and throat cancer at age 52) Additional Family Medical History / Comment(s): Mother at age 52 from lung and throat cancer. Father Family Medical History: No Reported History (alive and well) Additional Family Medical History / Comment(s): Father is alive with no significant health problems. Medications and Allergies Home Medications Medication Instructions Recorded Confirmed Type Cholecalciferol [Vitamin D3] 1,000 unit PO DAILY 07/21/16 08/24/16 History [place]-3 Fatty Acids/Fish Oil [Fish 1 cap PO DAILY 07/21/16 08/24/16 History Oil 1,000 mg Softgel] FLUoxetine HCL [PROzac] 40 mg PO DAILY 08/24/16 08/24/16 History Glucosam/Nicolas-Msm1/C/Jatinder/Bosw 1 tab PO DAILY 08/24/16 08/24/16 History [Glucosamine-Chondroitin Tablet] Multivitamins, Thera [Multivitamin 1 tab PO DAILY 08/24/16 08/24/16 History (formulary)] Vitamin B Complex 1 cap PO DAILY 08/24/16 08/24/16 History Allergies Allergy/AdvReac Type Severity Reaction Status Date / Time erythromycin base Allergy Rash/Hives Verified 08/24/16 15:49 Penicillins Allergy Rash/Hives Verified 08/24/16 15:49 Physical Exam Vitals: Vital Signs Temp Pulse Pulse Pulse Pulse Resp BP 08/25/16 07:38 97 F L 76 18 08/25/16 04:00 97.2 F L 55 L 18 08/25/16 00:00 76 18 08/24/16 20:00 97.8 F 70 20 08/24/16 18:23 98.6 F 80 20 08/24/16 17:59 97.9 F 71 20 119/56 08/24/16 17:31 87 117/66 08/24/16 16:42 79 82 72 08/24/16 15:23 85 122/63 08/24/16 15:10 97.8 F 55 L 20 111/70 BP BP BP Pulse Ox 08/25/16 07:38 112/65 96 08/25/16 04:00 108/60 97 08/25/16 00:00 120/72 96 08/24/16 20:00 123/71 08/24/16 18:23 110/73 08/24/16 17:59 99 08/24/16 17:31 98 08/24/16 16:42 102/70 145/93 90/54 08/24/16 15:23 96 08/24/16 15:10 96 Intake and Output 08/24/16 08/25/16 08/25/16 22:59 06:59 14:59 Intake Total 450 Balance 450 Intake: Intake, IV Titration 450 Amount Sodium Chloride 0.9% 1, 450 000 ml @ 75 mls/hr IV . [id number] [facility] Rx#:[id number] Other: Weight 176.8 kg 176.5 kg General appearance: This is a 35-year-old morbidly obese male. He is resting flat in bed appears to be in no acute distress. HEENT: Normocephalic, atraumatic, pupils equal round reactive to light, oropharynx is clear. Neck: Supple, trachea is midline, no lymphadenopathy, tenderness, or thyromegaly. Cardiovascular: Irregular rhythm, normal heart sounds. No S3 or S4. No systolic or diastolic murmur, rubs or gallop. GI: Abdomen is soft, distended due to obesity, positive bowel sounds, nontender , no masses, no rebound, no organomegaly. Extremities: No significant deformity, no joint abnormalities, no edema, peripheral pulses are intact, no calf tenderness Neurological: Cranial nerves II through XII are intact, strength and sensation symmetric and intact, patient is alert and oriented to person place and time. No focal defects noted. Skin: Warm dry and intact no rashes noted. Results CBC & Chem 7: 08/24/16 15:50 08/24/16 15:50 Labs: Abnormal Lab Results - Last 24 Hours (Table) 08/24/16 08/24/16 08/25/16 Range/Units 15:50 21:29 03:43 PT 12.1 H (9.0-12.0) sec Total Creatine Kinase 31 L 35 L (55-170) U/L HDL Cholesterol (40-60) mg/dL 08/25/16 Range/Units 03:43 PT (9.0-12.0) sec Total Creatine Kinase (55-170) U/L HDL Cholesterol 33 L (40-60) mg/dL Thrombosis Risk Factor Assmnt - DVT/VTE Prophylaxis DVT/VTE Prophylaxis: Pharmacologic Prophylaxis ordered Assessment and Plan Plan: 1. Presyncopal episode with shortness of breath, lower extremity weakness and lightheadedness presenting with atrial fibrillation controlled rate but possibly RVR or bradycardic episode. Patient admitted to the selective care unit. Cardiology consult appreciated with plan for RENATO and cardioversion tomorrow. 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 Continue Lopressor and eliquis. 2. Cardiomyopathy of unclear etiology. Continue as in #1. 3. Obstructive sleep apnea: Continue to wearCPAP at at bedtime. 4. Hyperglycemia: Will continue to monitor. No history of diabetes. 5. Polycythemia: Most likely due to his obstructive sleep apnea. 6. Tobacco use: Patient stopped smoking since last hospitalization. 7. GI prophylaxis: Continue Pepcid. 8. DVT prophylaxis: Eliquis. Patient to be admitted to the hospital for a 2 night stay. Discharge plan: Return home Impression and plan of care have been directed as dictated by the signing physician. Rianna Conklin nurse practitioner acting as scribe for signing physician.
[2016-08-25] MEDS: LISINOPRIL 2.5 MG TAB PO SCH (21:24)
[2016-08-25] MEDS: METOPROLOL TARTRATE 25 MG TAB PO SCH (21:24)
[2016-08-26 07:29] LABS: Anion Gap 10 mmol/L; Blood Urea Nitrogen 14 mg/dL (9-20); Calcium 8.9 mg/dL (8.4-10.2); Carbon Dioxide 20 mmol/L (22-30); Chloride 107 mmol/L (98-107); Glucose 90 mg/dL (74-99); Non-African American GFR(MDRD) >60 (>60 ml/min/1.73 sqM); Potassium 4.5 mmol/L (3.5-5.1); Sodium 137 mmol/L (137-145)
[2016-08-26] MEDS ORDERED: SODIUM CHLORIDE 0.9% 1,000 ML IV SCH (09:00)
[2016-08-26] MEDS ORDERED: SODIUM CHLORIDE 0.9% 1,000 ML IV ONE ×2 (09:25)
[2016-08-26] MEDS ORDERED: LIDOCAINE 1% INJ 10MG/ML (20 ML MDV) ONE (09:29)
[2016-08-26] MEDS ORDERED: PROPOFOL 10 MG/ML 20 ML VIAL IV ONE (09:29)
--- NOTE | 2016-08-26 10:58 | ECHOT ---
DATE OF SERVICE: 08/26/2016 PERFORMING PHYSICIAN: Oliver Hawkins MD, physical therapy instructor. PROCEDURE PERFORMED: Transesophageal echocardiogram. INDICATION: This is a pleasant 35-year-old gentleman who was admitted to the hospital with A. fib and RVR and the plan is to proceed with a cardioversion. The RENATO is to rule out any left atrial appendage thrombus. COMPLICATIONS: None. LEVEL OF SEDATION: Deep sedation was performed with anesthesiologist in the room. PROCEDURE DESCRIPTION: After obtaining an informed consent, explaining the procedure, benefits, risks, complications and alternatives, the patient was brought to the transesophageal echocardiogram suite. A pulse oximetry and heart rate monitors were attached to the patient prior to the procedure. The patient's throat was sprayed using lidocaine locally. Following that, the patient was turned into left lateral position. A bite guard was placed and the patient was then sedated with the above doses of Versed and fentanyl in divided doses. Following that, the transesophageal echocardiogram probe was advanced through the bite guard into the mid esophagus where 2-D echocardiogram images as well as color Doppler images of various cardiac structures were obtained. We evaluated the interatrial septum using 2-D echocardiogram, color Doppler, and contrast study. The procedure was completed. There were no complications. FINDINGS: The left ventricle is severely dilated. The left ventricular systolic function is severely impaired with an ejection fraction of 15% to 20% with global hypokinesia. The right ventricle appeared to be mildly dilated as well. The left atrium and right atrium are mildly dilated. The left atrial appendage appeared to be free from any thrombus. The interatrial septum was interrogated using color flow Doppler as well as contrast study. The interatrial septum appeared to be hyperdynamic with evidence of possible small patent manzo ovale seen. The aortic valve is trileaflet valve without stenosis or regurgitation. The mitral valve is mildly thickened with moderate MR. Moderate tricuspid regurgitation was seen. CONCLUSION: 1. Normal left atrial appendage without any evidence of thrombus. 2. Hyperdynamic interatrial septum with evidence of small patent manzo ovale. 3. Severely dilated left ventricle with severely impaired function and ejection fraction of 15% to 20% and global hypokinesia. 4. Trileaflet aortic valve without stenosis or regurgitation. 5. Moderate to severe mitral insufficiency. 6. Moderate tricuspid insufficiency. 7. No evidence of pericardial effusion.
[2016-08-26] MEDS: FLUoxetine HCL 20 MG CAP PO SCH (11:06)
[2016-08-26] MEDS: LISINOPRIL 2.5 MG TAB PO SCH ×2 (11:06→21:38)
[2016-08-26] MEDS: SODIUM CHLORIDE 0.9% 1,000 ML IV SCH (11:07)
[2016-08-26] MEDS: METOPROLOL TARTRATE 25 MG TAB PO SCH (11:07)
[2016-08-26] MEDS: FAMOTIDINE 20 MG TAB PO SCH (11:07)
[2016-08-26] MEDS: APIXABAN 5 MG TAB PO SCH ×2 (11:07→21:38)
[2016-08-26] MEDS: B COMPLEX-VIT C-VIT E-ZINC 1 EACH TAB PO SCH (11:07)
--- NOTE | 2016-08-26 11:45 | CE ---
DATE OF SERVICE: 08/26/2016 CARDIOVERSION INDICATIONS: This is a pleasant 35-year-old gentleman who was admitted to the hospital with A. fib RVR and he underwent transesophageal echocardiogram and left atrial appendage thrombus was ruled out. COMPLICATIONS: None. LEVEL OF SEDATION: Moderate with a sedation length of about 20 minutes. PROCEDURE DESCRIPTION: After transesophageal echocardiogram was performed and left atrial appendage was ruled out, we decided to pursue the cardioversion. Attempted cardioversion was performed using 200, 360 x2, and we failed in cardioverting the patient from A. fib to normal sinus mechanism. CONCLUSION: Unsuccessful cardioversion of atrial fibrillation to normal sinus mechanism using 200 and 360 joules x2.
[2016-08-26] MEDS: CHOLECALCIFEROL 1,000 UNIT TAB PO SCH (13:23)
[2016-08-26] MEDS: MULTIVITAMINS, THERA 1 EACH TAB PO SCH (13:25)
--- NOTE | 2016-08-26 14:28 | P.PN ---
Subjective This is a 35-year-old male with a history of morbid obesity, depression, and obstructive sleep apnea. He is a patient of Dr. Cabrera. He was recently hospitalized July 22 for atrial fibrillation with RVR he was started on metoprolol and eliquis and was seen by Dr. Hawkins. Echocardiogram gram revealed mild concentric left ventricular hypertrophy, mild mitral regurgitation, trace tricuspid regurgitation and EF of 30-35%. Since that hospitalization, patient states that he has stopped smoking and stopped taking energy drinks. He also states that he has been taking his medications as directed. He denies any blood or black stools, no recent medication changes. Patient has not followed up with cardiology due to scheduling issues. He complains of 5 days of worsening dizziness and lightheadedness and he feels like his legs will give out. He had one of these episodes while walking down the stairs and lost his balance and fell partially down the stairs. He was able to catch himself and did not have any injuries. There was no loss of consciousness. He does complain of intermittent shortness of breath. No fever or chills. Chest x-ray showed no acute abnormality. EKG was atrial fibrillation rate of 77. He does have a CPAP machine at home for his sleep apnea and and has had the facemask repaired since last admission. Due to hypotension, metoprolol was held last evening and subsequently resumed this morning. He has been seen by cardiology with plan for RENATO and cardioversion tomorrow. 08/26: Triglycerides were 76, cholesterol 146, LDL 98 and HDL 33. RENATO was revealed ejection fraction 15-20% with global hypokinesia and severely dilated left ventricle, small patent foramen ovale, severe mitral insufficiency, moderate tricuspid insufficiency. Cardioversion was unsuccessful after 3 attempts. Discuss with cardiology if patient would be a candidate for Entresto. Blood pressure is on the low side and lisinopril discontinued. Objective - Vital Signs Vital signs: Vital Signs Temp 97.1 F L 08/26/16 08:52 Pulse 62 08/26/16 08:52 Resp 16 08/26/16 08:52 BP 98/68 08/26/16 08:52 Pulse Ox 94 L 08/26/16 08:52 Intake & Output 08/25/16 08/26/16 08/26/16 18:59 06:59 18:59 Intake Total 1240 350 Balance 1240 350 Weight 175.6 kg Intake: Intake, IV Titration 760 Amount Sodium Chloride 0.9% 1, 160 000 ml @ 20 mls/hr IV . Q24H [facility] Rx#:[id number] Sodium Chloride 0.9% 1, 600 000 ml @ 75 mls/hr IV . [id number] [facility] Rx#:[id number] Oral 480 350 Other: # Voids 1 - Exam General appearance: This is a 35-year-old morbidly obese male. He is resting flat in bed appears to be in no acute distress. HEENT: Normocephalic, atraumatic, pupils equal round reactive to light, oropharynx is clear. Neck: Supple, trachea is midline, no lymphadenopathy, tenderness, or thyromegaly. Cardiovascular: Irregular rhythm, normal heart sounds. No S3 or S4. No systolic or diastolic murmur, rubs or gallop. GI: Abdomen is soft, distended due to obesity, positive bowel sounds, nontender , no masses, no rebound, no organomegaly. Extremities: No significant deformity, no joint abnormalities, no edema, peripheral pulses are intact, no calf tenderness Neurological: Cranial nerves II through XII are intact, strength and sensation symmetric and intact, patient is alert and oriented to person place and time. No focal defects noted. Skin: Warm dry and intact no rashes noted. - Labs CBC & Chem 7: 08/24/16 15:50 08/26/16 06:32 Labs: Abnormal Lab Results - Last 24 Hours (Table) 08/26/16 Range/Units 06:32 Carbon Dioxide 20 L (22-30) mmol/L Assessment and Plan Plan: 1. Presyncopal episode with shortness of breath, lower extremity weakness and lightheadedness presenting with atrial fibrillation controlled rate but possibly RVR or bradycardic episode with underlying chronic atrial fibrillation. Patient admitted to the selective care unit. Cardiology consult appreciated. Status post RENATO and unsuccessful cardioversion. operations/dispatch in place. Continue Lopressor and eliquis. Patient may be candidate for Entresto. Lisinopril discontinued. 2. Cardiomyopathy of unclear etiology. Continue as in #1. 3. Obstructive sleep apnea: Continue to wearCPAP at at bedtime. 4. Hyperglycemia: Will continue to monitor. No history of diabetes. 5. Polycythemia: Most likely due to his obstructive sleep apnea. 6. Tobacco use: Patient stopped smoking since last hospitalization. 7. GI prophylaxis: Continue Pepcid. 8. DVT prophylaxis: Eliquis. Patient to be admitted to the hospital for a 2 night stay. Discharge plan: Return home Impression and plan of care have been directed as dictated by the signing physician. Rianna Conklin nurse practitioner acting as scribe for signing physician.
--- NOTE | 2016-08-26 15:26 | P.PN ---
Subjective Principal diagnosis: Atrial fibrillation This is a 35-year-old gentleman with history of COPD the use of CPAP at home, obesity, persistent atrial fibrillation, who presented to the hospital with symptoms of dizziness with associated shortness of breath and weakness. He was recently in the hospital one month ago with similar symptoms and was diagnosed with atrial fibrillation with associated cardiomyopathy ejection fraction 3035% . That time patient had been consuming 3-4 energy drinks a day and was a current smoker. He was discharged home on Eliquis and metoprolol tartrate. Patient states he has been compliant with his medication and it stopped drinking energy drinks. EKG on admission showed atrial fibrillation with a controlled ventricular response. Labs were unremarkable with troponins less than 0.23 and a BNP of 306. Normal renal function. Patient underwent a RENATO today which revealed a normal left atrial appendage without any evidence of thrombus. Hyperdynamic intra-atrial septum with evidence of small PFO, severely dilated left ventricle with severely impaired function and ejection fraction of 15-20%. Moderate to severe MR and moderate TR. An attempt was made 3 to cardiovert the patient however unsuccessful. The fibrillation with a controlled ventricular response. Blood pressure 113/60 with a heart rate in the 60s. Sodium 135, potassium 4.5, BUN 14, creatinine 0.7. Troponins negative 3. Objective - Vital Signs Vital signs: Vital Signs Temp 97.8 F 08/26/16 11:15 Pulse 68 08/26/16 11:15 Resp 20 08/26/16 11:15 BP 113/65 08/26/16 11:15 Pulse Ox 96 08/26/16 11:15 Intake & Output 08/25/16 08/26/16 08/26/16 18:59 06:59 18:59 Intake Total 1240 350 170 Balance 1240 350 170 Weight 175.6 kg Intake: IV 170 Intake, IV Titration 760 Amount Sodium Chloride 0.9% 1, 160 000 ml @ 20 mls/hr IV . Q24H [facility] Rx#:[id number] Sodium Chloride 0.9% 1, 600 000 ml @ 75 mls/hr IV . [id number] [facility] Rx#:[id number] Oral 480 350 Other: # Voids 1 1 - Exam PHYSICAL EXAMINATION: HEENT: Head is atraumatic, normocephalic. Pupils equal, round. Neck is supple. There is no elevated jugular venous pressure. HEART EXAMINATION: Heart S1 and S2 irregular irregular systolic murmur is heard. CHEST EXAMINATION: Lungs are clear to auscultation and precussion. No chest wall tenderness is noted on palpation or with deep breathing. ABDOMEN: Soft, obese, nontender. Bowel sounds are heard. No organomegaly noted. EXTREMITIES: 2+ peripheral pulses with trace evidence of peripheral edema and no calf tenderness noted. NEUROLOGIC patient is awake, alert and oriented -3. . - Labs CBC & Chem 7: 08/24/16 15:50 08/26/16 06:32 Labs: Abnormal Lab Results - Last 24 Hours (Table) 08/26/16 Range/Units 06:32 Carbon Dioxide 20 L (22-30) mmol/L Assessment and Plan (1) Chronic a-fib Status: Acute (2) NICM (nonischemic cardiomyopathy) Status: Acute (3) Sleep apnea Status: Acute (4) Nicotine dependence Status: Acute Plan: From cardiology's perspective, we will continue current medications. Consultation has been requested with Dr. Isabel for possible ablation as well as possible AICD implantation. We will continue to follow. DNP note has been reviewed, I agree with a documented findings and plan of care. Patient was seen and examined.
[2016-08-27 07:05] LABS: Anion Gap 8 mmol/L; Blood Urea Nitrogen 13 mg/dL (9-20); Calcium 8.9 mg/dL (8.4-10.2); Carbon Dioxide 26 mmol/L (22-30); Chloride 104 mmol/L (98-107); Glucose 91 mg/dL (74-99); Non-African American GFR(MDRD) >60 (>60 ml/min/1.73 sqM); Potassium 4.2 mmol/L (3.5-5.1); Sodium 138 mmol/L (137-145)
[2016-08-27] MEDS ORDERED: PROPOFOL 10 MG/ML 20 ML VIAL IV ONE (07:15)
[2016-08-27] MEDS ORDERED: LACTATED RINGERS 1,000 ML IV ONE ×2 (07:15)
--- NOTE | 2016-08-27 08:02 | CE ---
DATE OF SERVICE: Mr. Cortes is a 35-year-old male patient with morbid obesity who has persistent atrial fibrillation and severe cardiomyopathy. He failed electrical cardioversion yesterday and is brought in for repeat electrical cardioversion with high energy level use. Under anesthesia, the patient was electrically cardioverted first with a 360-joule shock in the apical configuration with patches placed slightly differently than yesterday. This failed. Therefore, this was repeated with 720-joule shock, 2 simultaneous shocks were delivered, 360 each, one in the apical configuration and one in the anteroapical configuration. This also failed and he remained in atrial fibrillation. IMPRESSION: Atrial fibrillation refractory to electrical cardioversion with up to 720-joule shock. PLAN: 1. Anticoagulation and rate control. 2. Avoid drugs that will increase the defibrillation thresholds.
[2016-08-27] MEDS ORDERED: METOPROLOL SUCCINATE (ER) 50 MG TAB.ER.24H PO SCH (09:00)
[2016-08-27] MEDS ORDERED: SPIRONOLACTONE 25 MG TAB PO SCH (09:00)
[2016-08-27] MEDS: LISINOPRIL 2.5 MG TAB PO SCH (09:17)
[2016-08-27] MEDS: APIXABAN 5 MG TAB PO SCH (09:17)
[2016-08-27] MEDS: FAMOTIDINE 20 MG TAB PO SCH (09:17)
[2016-08-27] MEDS: CHOLECALCIFEROL 1,000 UNIT TAB PO SCH (09:17)
[2016-08-27] MEDS: FLUoxetine HCL 20 MG CAP PO SCH (09:17)
[2016-08-27] MEDS: B COMPLEX-VIT C-VIT E-ZINC 1 EACH TAB PO SCH (09:17)
[2016-08-27] MEDS: MULTIVITAMINS, THERA 1 EACH TAB PO SCH (11:56)
[2016-08-27 12:02] VITALS: BP 95/55; PULSE 60; RESP 14; TEMP 98.6
--- NOTE | 2016-08-27 12:14 | P.DS ---
Providers Date of admission: 08/24/16 17:04 Expected date of discharge: 08/27/16 Attending physician: Paola Cabrera Consults: 08/24/16 17:05 Consult Physician Urgent Consulting Provider: [facility] Consult Reason/Comments: afib, sob, dizziness Do you want consulting provider notified?: Yes 08/26/16 14:57 Consult Physician Urgent Consulting Provider: Gordo Isabel Consult Reason/Comments: afib?ablation....?AICD Do you want consulting provider notified?: Yes Primary care physician: Paola Cabrera [facility] Course: This is a 35-year-old male with a history of morbid obesity, depression, and obstructive sleep apnea. He is a patient of Dr. Cabrera. He was recently hospitalized July 22 for atrial fibrillation with RVR he was started on metoprolol and eliquis and was seen by Dr. Hawkins. Echocardiogram gram revealed mild concentric left ventricular hypertrophy, mild mitral regurgitation, trace tricuspid regurgitation and EF of 30-35%. Since that hospitalization, patient states that he has stopped smoking and stopped taking energy drinks. He also states that he has been taking his medications as directed. He denies any blood or black stools, no recent medication changes. Patient has not followed up with cardiology due to scheduling issues. He complains of 5 days of worsening dizziness and lightheadedness and he feels like his legs will give out. He had one of these episodes while walking down the stairs and lost his balance and fell partially down the stairs. He was able to catch himself and did not have any injuries. There was no loss of consciousness. He does complain of intermittent shortness of breath. No fever or chills. Chest x-ray showed no acute abnormality. EKG was atrial fibrillation rate of 77. He does have a CPAP machine at home for his sleep apnea and and has had the facemask repaired since last admission. Due to hypotension, metoprolol was held last evening and subsequently resumed this morning. He has been seen by cardiology with plan for RENATO and cardioversion tomorrow. 08/26: Triglycerides were 76, cholesterol 146, LDL 98 and HDL 33. RENATO was revealed ejection fraction 15-20% with global hypokinesia and severely dilated left ventricle, small patent foramen ovale, severe mitral insufficiency, moderate tricuspid insufficiency. Cardioversion was unsuccessful after 3 attempts. Discuss with cardiology if patient would be a candidate for Entresto. Blood pressure is on the low side and lisinopril discontinued. 08/27: Cardiology is planning to consult Dr. Isabel for possible ablation as well as possible AICD. Dr. Isabel saw the patient this morning with planned that he will follow-up in the office with Dr. Hawkins and further plans will be made for ablation. Patient will be discharged home today in stable condition. Discharge Diagnoses: 1. Presyncopal episode with shortness of breath, lower extremity weakness and lightheadedness presenting with atrial fibrillation controlled rate but possibly RVR or bradycardic episode with underlying chronic atrial fibrillation. 2. Cardiomyopathy of unclear etiology. 3. Obstructive sleep apnea compliant with CPAP 4. Hyperglycemia 5. Polycythemia due to his obstructive sleep apnea. 6. Tobacco use: Patient stopped smoking since last hospitalization. Discharge plan: Return home Impression and plan of care have been directed as dictated by the signing physician. Rianna Conklin nurse practitioner acting as scribe for signing physician. Patient Condition at Discharge: Good Plan - Discharge Summary New Discharge Prescriptions: New Famotidine [Pepcid] 20 mg PO DAILY #30 tab Lisinopril [Zestril] 5 mg PO BID #60 tab Metoprolol Succinate (ER) [Toprol XL] 50 mg PO DAILY #60 tab Spironolactone [Aldactone] 25 mg PO DAILY #30 tab Continue Chula-3 Fatty Acids/Fish Oil [Fish Oil 1,000 mg Softgel] 1 cap PO DAILY Cholecalciferol [Vitamin D3] 1,000 unit PO DAILY Apixaban [Eliquis] 5 mg PO BID #60 tab Vitamin B Complex 1 cap PO DAILY Multivitamins, Thera [Multivitamin (formulary)] 1 tab PO DAILY FLUoxetine HCL [PROzac] 40 mg PO DAILY Glucosam/Nicolas-Msm1/C/Jatinder/Bosw [Glucosamine-Chondroitin Tablet] 1 tab PO DAILY Discontinued Metoprolol Tartrate [Lopressor] 25 mg PO BID #60 tab Discharge Medication List Cholecalciferol [Vitamin D3] 1,000 unit PO DAILY 07/21/16 [History] Chula-3 Fatty Acids/Fish Oil [Fish Oil 1,000 mg Softgel] 1 cap PO DAILY [History] Apixaban [Eliquis] 5 mg PO BID #60 tab 07/23/16 [Rx] FLUoxetine HCL [PROzac] 40 mg PO DAILY 08/24/16 [History] Glucosam/Nicolas-Msm1/C/Jatinder/Bosw [Glucosamine-Chondroitin Tablet] 1 tab PO DAILY 08/24/16 [History] Multivitamins, Thera [Multivitamin (formulary)] 1 tab PO DAILY 08/24/16 [History ] Vitamin B Complex 1 cap PO DAILY 08/24/16 [History] Famotidine [Pepcid] 20 mg PO DAILY #30 tab 08/27/16 [Rx] Lisinopril [Zestril] 5 mg PO BID #60 tab 08/27/16 [Rx] Metoprolol Succinate (ER) [Toprol XL] 50 mg PO DAILY #60 tab 08/27/16 [Rx] Spironolactone [Aldactone] 25 mg PO DAILY #30 tab 08/27/16 [Rx] Follow up Appointment(s)/Referral(s): Paola Cabrera MD [Primary Care Provider] - 1-2 days Oliver Hawkins MD [STAFF PHYSICIAN] - 09/06/16 4:30 pm Discharge Disposition: HOME SELF-CARE
--- NOTE | 2016-08-27 14:40 | PN ---
Mr. Cortes is a 35-year-old male with history of severe cardiomyopathy, history of atrial fibrillation, underwent attempted cardioversion yesterday with to [address] Isabel and was unsuccessful in restoring normal sinus rhythm. He is feeling reasonably well this morning. His breathing is stable. He is denying any chest pain. No dizziness. No palpitation. He continues to be on Eliquis 5 mg twice a day, lisinopril 2.5 mg twice a day, metoprolol succinate 50 mg daily and spironolactone 25 mg daily. PHYSICAL EXAMINATION: Blood pressure 114/50 with a heart rate in the 60s. LUNGS: Clear. HEART: Irregularly irregular. S1, S2, no S3, no rub. ABDOMEN: Soft, obese, nontender. EXTREMITIES: No edema. Lab data revealed a BUN and creatinine of 13 and 0.75. IMPRESSION: 1. Severe cardiomyopathy of unclear etiology. 2. Atrial fibrillation. 3. Morbid obesity. RECOMMENDATION: Will increase the dose of lisinopril. Patient should be able to be discharged home today, follow with Dr. Hawkins next week and probably proceed with coronary angiography to rule out an ischemic etiology to his presentation and if there is no abnormalities, then I would recommend to consider ablation to see if we can restore normal sinus rhythm, in view of his severe cardiomyopathy. If there is no improvement in his LV function, then he may be a candidate for ICD implant. Patient will be evaluated for sleep apnea as well.
[2016-08-27] MEDS ORDERED: LISINOPRIL 5 MG TAB PO SCH (21:00)
== END 2016-08-27 14:38 | disposition home or self-care (01) | DRG 309 ==
LOC: EC 15:06 → 6SEL 17:04
PROVIDERS: ADMIT Family Medicine; ATTEND Family Medicine
PROC: 5A2204Z Restoration of Cardiac Rhythm, Single (ICD-10-PCS; 2016-08-26)
PROC: B246ZZ4 Ultrasonography of Right and Left Heart, Transesophageal (ICD-10-PCS; principal; 2016-08-26 09:16)
DX: I48.1 Persistent atrial fibrillation (principal); Z68.43 Body mass index [BMI] 50.0-59.9, adult; I50.20 Unspecified systolic (congestive) heart failure; Q21.1 Atrial septal defect; E66.01 Morbid (severe) obesity due to excess calories; I42.9 Cardiomyopathy, unspecified; D75.1 Secondary polycythemia; I08.1 Rheumatic disorders of both mitral and tricuspid valves; G47.33 Obstructive sleep apnea (adult) (pediatric); F32.9 Major depressive disorder, single episode, unspecified; I95.1 Orthostatic hypotension; J44.9 Chronic obstructive pulmonary disease, unspecified; R73.9 Hyperglycemia, unspecified; F17.200 Nicotine dependence, unspecified, uncomplicated; Z88.0 Allergy status to penicillin; Z88.1 Allergy status to other antibiotic agents; Z79.01 Long term (current) use of anticoagulants; Z79.899 Other long term (current) drug therapy; W10.9XXA Fall (on) (from) unspecified stairs and steps, initial encounter; Y93.01 Activity, walking, marching and hiking
CPT/HCPCS: 36415; 71020; 80048; 80061; 82550; 82553; 83735; 83880; 84484; 85025; 85610; 92960; 93005; 93312; 93320; 93325; 96360; 96361; 99285

== ENCOUNTER 2016-09-23 10:49 | Day surgery (SDC) | payer OTHER ==
[2016-09-21 08:16] VITALS: BMI 51.5
[~2016-09-23 10:49] MED LIST: ALPRAZolam 0.25 MG TAB PO PRN; ALPRAZolam 0.5 MG TAB PO PRN; ASPIRIN 325 MG TAB PO STA; ATORVASTATIN 80 MG TAB PO STA; NITROGLYCERIN SL TABS 0.4 MG TAB SUBLINGUAL PRN; SODIUM CHLORIDE 0.9% 1,000 ML in EMPTY BAG 1 BAG IV ONE
[2016-09-23] MEDS ORDERED: LIDOCAINE 2% INJ 20 MG/ML (20 ML MDV) ONE ×2 (12:03→12:18)
[2016-09-23] MEDS ORDERED: MIDAZOLAM 2 MG/2 ML VIAL ONE ×2 (12:05→12:21)
[2016-09-23] MEDS ORDERED: MIDAZOLAM 2 MG/2 ML VIAL IV ONE ×2 (12:10→12:21)
[2016-09-23] MEDS ORDERED: LIDOCAINE 2% INJ 20 MG/ML SQ ONE ×2 (12:14→12:22)
[2016-09-23] MEDS ORDERED: fentaNYL (PF) 50 MCG/ML 2 ML AMP IV ONE (12:17)
[2016-09-23] MEDS ORDERED: fentaNYL (PF) 50 MCG/ML 2 ML AMP ONE (12:18)
[2016-09-23] MEDS ORDERED: IOHEXOL 350 MG/ML 125ML BOTTLE INJ ONE (12:49)
[2016-09-23] MEDS ORDERED: RX INFO: IV CONTRAST WAS GIVEN 1 EACH MISC MISCELLANE PRN (12:53)
[2016-09-23] MEDS ORDERED: SODIUM CHLORIDE 0.9% 1,000 ML IV SCH (13:00)
[2016-09-23 19:46] VITALS: BP 120/63; PULSE 70; RESP 16; TEMP 98.5
--- NOTE | 2016-09-23 21:49 | CC ---
DATE OF PROCEDURE: 09/23/2016 PERFORMING PHYSICIAN: Oliver Hawkins M.D., oracle apex developer. PROCEDURES PERFORMED: 1. Right heart catheterization. 2. Left heart catheterization. 3. Selective right and left coronary angiogram. INDICATION: This is a pleasant 35-year-old gentleman who was diagnosed recently with severe cardiomyopathy as well as atrial fibrillation. He was brought today to undergo a heart catheterization to rule out any severe underlying CAD. APPROACH: Right common femoral artery and right common femoral vein. COMPLICATIONS: None. LEVEL OF SEDATION: Moderate with a sedation length of 38 minutes. PROCEDURE DESCRIPTION: After obtaining informed consent, the patient was brought to the cardiac liaison inspection laboratory assistant. The right common femoral vein was cannulated using micropuncture technique. The micropuncture wire passed easily. Then I placed an 8 [place] sheath in the right common femoral vein. Subsequently I cannulated the right common femoral artery using the same technique, which was micropuncture technique. The micropuncture wire passed easily. Then I placed a 6 [place] sheath in the right common femoral artery. At that point I did right heart catheterization using 6 [place] catheter which was advanced into the right heart chambers and all the way to the wedge position. I did also cardiac output using thermodilution. After that I did selective right and left coronary angiogram using JR4 and JL4 catheters. Subsequently I did left heart catheterization and LV gram using 6 [place] pigtail catheter. The procedure was completed without any complication. HEMODYNAMICS: 1. The pulmonary capillary wedge pressure was 14 mmHg. 2. PA pressures were as follows: systolic 31, diastolic 19 and mean of 24 mmHg. 3. RV pressures were as follows: systolic 25, end-diastolic of 11 mmHg. 4. RA pressure was 11 mmHg. 5. The cardiac output was performed using thermodilution and came in to be 8 L/ minute. SELECTIVE CORONARY ANGIOGRAM: 1. The right coronary artery is a large-caliber vessel. It is a dominant vessel. It is angiographically normal. In the mid portion it gives rise to an acute marginal branch and distally bifurcates into PDA and PLV branches. Both are angiographically normal. 2. The left main coronary artery is angiographically normal. It bifurcates into left circumflex, ramus intermedius and left anterior descending artery. 3. The left circumflex is a large-caliber vessel. It is a non-dominant vessel. It is angiographically normal. 4. The ramus intermedium is a large-caliber vessel and seems to be angiographically normal as well. 5. The left anterior descending artery. The proximal LAD appeared to be angiographically normal, and in the proximal portion it gives rise to a large diagonal branch which seems to be angiographically normal. The mid LAD is angiographically normal and gives rise to a second diagonal branch, which is a small-caliber vessel and seems to be angiographically normal. The LAD distally is angiographically normal. 6. Left ventriculography. Left ventriculography was performed in the ROGERS projection using a power injection. The left ventricular systolic function is severely impaired with an ejection fraction of 15% to 20% with global hypokinesia and dilated left ventricle. CONCLUSION: 1. Overall normal right heart pressures. 2. Normal coronary angiogram. 3. Severe non-ischemic cardiomyopathy. POST-PROCEDURE MANAGEMENT: 1. Maximize medical treatment. 2. Follow up with the patient. ROMULO
== END 2016-09-23 20:11 | disposition home or self-care (01) ==
LOC: CATHCVL 10:49 → 3OBS 12:50 → CATHCVL 20:11
PROVIDERS: ATTEND Internal Medicine Interventional Cardiology
DX: I42.9 Cardiomyopathy, unspecified (principal); I48.0 Paroxysmal atrial fibrillation; Z79.01 Long term (current) use of anticoagulants; E66.9 Obesity, unspecified; Z68.43 Body mass index [BMI] 50.0-59.9, adult; G47.33 Obstructive sleep apnea (adult) (pediatric); Z99.89 Dependence on other enabling machines and devices; Z87.891 Personal history of nicotine dependence; Z79.899 Other long term (current) drug therapy; Z88.1 Allergy status to other antibiotic agents; Z88.0 Allergy status to penicillin
CPT/HCPCS: 93460; 99152; 99153; C1769 ×3; C1894 ×2; J2001; J2250; J3010; Q9967

== ENCOUNTER 2016-11-01 12:29 | Day surgery (SDC) | payer OTHER ==
[2016-10-25 14:22] VITALS: BMI 51.5
[~2016-11-01 12:29] MED LIST changes: -ALPRAZolam 0.25 MG TAB PO PRN; -ALPRAZolam 0.5 MG TAB PO PRN; -ASPIRIN 325 MG TAB PO STA; -ATORVASTATIN 80 MG TAB PO STA; +LACTATED RINGERS 1,000 ML IV SCH; +LIDOCAINE 1% 20 ML VIAL (10MG/ML) FOR IV START INTRADERMA PRN; -NITROGLYCERIN SL TABS 0.4 MG TAB SUBLINGUAL PRN; +SODIUM CHLORIDE 0.9% 1,000 ML IV SCH; -SODIUM CHLORIDE 0.9% 1,000 ML in EMPTY BAG 1 BAG IV ONE
[2016-11-01 13:08] LABS: Anion Gap 9 mmol/L; Blood Urea Nitrogen 9 mg/dL (9-20); Calcium 8.7 mg/dL (8.4-10.2); Carbon Dioxide 24 mmol/L (22-30); Chloride 107 mmol/L (98-107); Glucose 109 mg/dL (74-99); Non-African American GFR(MDRD) >60 (>60 ml/min/1.73 sqM); Potassium 4.3 mmol/L (3.5-5.1); Sodium 140 mmol/L (137-145)
[2016-11-01 13:17] LABS: Basophils % (A) 0 %; CHCM 34.6; Eosinophils # (A) 0.1 k/uL (0-0.7); Eosinophils % (A) 1 %; HCT 44.9 % (39.0-53.0); HDW 2.71; HGB 15.6 gm/dL (13.0-17.5); Luc # (Auto) 0.23; Luc % (Auto) 2; Lymphocytes # (A) 1.9 k/uL (1.0-4.8); Lymphocytes % (A) 19 %; MCH 30.3 pg (25.0-35.0); MCHC 34.7 g/dL (31.0-37.0); MCV 87.2 fL (80.0-100.0); Mean Platelet Volume 6.2; Monocytes # (A) 0.6 k/uL (0-1.0); Monocytes % (A) 6 %; Neutrophils % (A) 71 %; RBC 5.15 m/uL (4.30-5.90); RDW 13.5 % (11.5-15.5); WBC 9.8 k/uL (3.8-10.6); WBC (Perox) 9.31
[2016-11-01] MEDS ORDERED: IV FLUID CONTINUATION 1,000 ML IV ONE (13:39)
[2016-11-01] MEDS ORDERED: FUROSEMIDE 10 MG/ML 2 ML VIAL ONE (13:39)
[2016-11-01] MEDS ORDERED: PROPOFOL 10 MG/ML 20 ML VIAL IV ONE (13:39)
[2016-11-01] MEDS ORDERED: SUCCINYLCHOLINE CHLORIDE VIAL 200 MG/10 ML VIAL IV ONE (13:39)
[2016-11-01] MEDS ORDERED: MIDAZOLAM 2 MG/2 ML VIAL ONE (13:39)
[2016-11-01] MEDS ORDERED: ETOMIDATE 2 MG/ML 10 ML VIAL ONE (13:39)
[2016-11-01] MEDS ORDERED: PHENYLEPHRINE-0.9% NACL SYG 1 MG/10 ML SYRINGE ONE (13:39)
[2016-11-01] MEDS ORDERED: fentaNYL (PF) 50 MCG/ML 2 ML AMP ONE (13:39)
[2016-11-01] MEDS ORDERED: PROTAMINE SULFATE 10 MG/ML 5 ML VIAL IV ONE (13:39)
[2016-11-01] MEDS ORDERED: HEPARIN SODIUM,PORCINE 5,000 UNIT/ML 1 ML VIAL ONE (13:39)
[2016-11-01] MEDS ORDERED: HEPARIN SODIUM,PORCINE 10,000 UNIT/ML 1 ML VIAL ONE (13:39)
[2016-11-01] MEDS ORDERED: LIDOCAINE 2% INJ 20 MG/ML SQ ONE (14:17)
[2016-11-01] MEDS ORDERED: HEPARIN SODIUM,PORCINE/D5W PMX 25,000 UNIT in DEXTROSE/WATER 1 500ML.BAG IV ONE (14:23)
[2016-11-01] MEDS ORDERED: ACETAMINOPHEN TAB 325 MG TAB PO PRN (16:24)
[2016-11-01] MEDS ORDERED: ACETAMINOPHEN IV (For NPO) 1,000 MG in EMPTY BAG 1 BAG IVPB ONE (16:24)
[2016-11-01] MEDS ORDERED: IOHEXOL 350 MG/ML 100 ML BOTTLE INJ ONE (16:32)
[2016-11-01] MEDS ORDERED: IOHEXOL 350 MG/ML 125ML BOTTLE INJ ONE (16:43)
--- NOTE | 2016-11-01 17:51 | CE ---
35 -year-old male patient with persistent atrial fibrillation, failed electrical cardioversion, was brought in for antral isolation of the pulmonary veins. He underwent cryoablation. He has hypertension, obesity, cardiomyopathy, nonischemic in nature. He has symptomatic atrial fibrillation. The patient was brought to the EP lab in a fasting state. Written informed consent was obtained prior to the procedure. The procedure was performed under general anesthesia. Venous sheaths were placed in the right and left femoral veins. Via these, mapping ablation catheters as well as diagnostic catheters were placed. The HV interval was 56 ms. The patient was in atrial fibrillation at the start of the study. Burst stimulation from the ventricle was performed for 15 out of 350 ms. Electrical cardioversion was attempted but this failed despite moving the patches to change the shock vector. Intracardiac echocardiography was performed in the left ventricle, in the right ventricle, left atrial appendage, right atrial appendage and left atrium were identified. Pulmonary veins were identified. Right and left transeptal catheterization was performed. RA pressure 25 mmHg. LA pressure 35 mmHg. Cardiomyopathy was noted on intracardiac echo. A transeptal catheterization was performed. Cryo catheter was placed and the left superior, left inferior, and right superior and right inferior veins were sequentially isolated and successfully isolated. For the left superior pulmonary vein, two cryoablation lesions were delivered for 120 seconds followed by180 seconds. The left sided veins were a common os. Good temperatures were achieved and excellent ( ) was achieved. The left inferior pulmonary vein was then tackled and 75 seconds followed by 240 second cryo lesion was delivered with excellent temperatures achieved. At the end of this ( ) procedure, both veins were isolated but the patient remains in atrial fibrillation. Then, during ( ) pacing, first the right superior pulmonary vein was ablated. Two lesions were delivered 115 seconds and 160 second. This achieved complete isolation of the superior and mid veins on the right side. ( ) level remained intact. Then the right superior pulmonary vein was tackled and 240 second lesion followed by 120 second lesion was delivered with excellent temperatures and complete isolation of the veins. At the end of the procedure, the achieved catheter was placed on all four pulmonary veins to document and complete ( ) block. The patient however remained in atrial fibrillation. Electrical cardioversion was performed at three different vectors was attempted and he still was not cardioverted. The catheter was placed the right atrium. The right atrium was fibrillating. The left side of the left atrium had a low atrial tachycardia that was clearly not the drive of atrial fibrillation. All catheters were then removed. The patient was transferred back to telemetry with plan of starting dofetilide for persistent atrial fibrillation. Plan at attempting any further linear and extensive ablations. RESULT: Successful isolation of all four pulmonary veins with cryoablation with documented entrance block without termination of atrial fibrillation. PLAN: Initiate dofetilide for persistent atrial fibrillation now as an inpatient. This was discussed with family. His creatinine clearance is normal. His potassium is normal. His BUN is 9, creatinine 0.65. MTDD
[2016-11-01] MEDS ORDERED: DOFETILIDE 500 MCG CAP PO ONE (18:00)
[2016-11-01] MEDS ORDERED: MAGNESIUM SULFATE-D5W PMX 1 GM in DEXTROSE/WATER 1 100ML.BAG IVPB ONE (20:00)
[2016-11-01] MEDS ORDERED: HEPARIN SODIUM (1,000 UNIT/ML) 1,000 UNIT in SODIUM CHLORIDE 0.9% 1,000 ML IRRIGATION ONE (20:04)
[2016-11-01] MEDS ORDERED: LACTATED RINGERS 1,000 ML IV ONE (20:05)
[2016-11-01] MEDS ORDERED: HYDROmorphone 1 MG/ML 1 ML SYRINGE IVP PRN (21:36)
[2016-11-01] MEDS: APIXABAN 5 MG TAB PO SCH (21:53)
[2016-11-01] MEDS: HYDROcodone/APAP 5-325MG 1 EACH TAB PO PRN (21:53)
[2016-11-02] MEDS: TEMAZEPAM 15 MG CAP PO PRN ×2 (01:03→22:13)
[2016-11-02] MEDS: HYDROcodone/APAP 5-325MG 1 EACH TAB PO PRN ×2 (03:24→22:13)
[2016-11-02] MEDS ORDERED: DOFETILIDE 500 MCG CAP PO ONE (06:00)
[2016-11-02 06:18] LABS: CH 29.7; CHCM 33.8; HCT 41.7 % (39.0-53.0); HDW 2.65; HGB 14.2 gm/dL (13.0-17.5); MCH 30.1 pg (25.0-35.0); MCHC 34.2 g/dL (31.0-37.0); MCV 88.2 fL (80.0-100.0); Mean Platelet Volume 6.1; RBC 4.73 m/uL (4.30-5.90); RDW 13.7 % (11.5-15.5); WBC 15.9 k/uL (3.8-10.6)
[2016-11-02 06:30] LABS: Anion Gap 8 mmol/L; Blood Urea Nitrogen 9 mg/dL (9-20); Calcium 8.5 mg/dL (8.4-10.2); Carbon Dioxide 27 mmol/L (22-30); Chloride 103 mmol/L (98-107); Glucose 84 mg/dL (74-99); Magnesium 1.7 mg/dL (1.6-2.3); Non-African American GFR(MDRD) >60 (>60 ml/min/1.73 sqM); Potassium 4.5 mmol/L (3.5-5.1); Sodium 138 mmol/L (137-145)
[2016-11-02] MEDS ORDERED: SPIRONOLACTONE 25 MG TAB PO SCH (09:00)
--- NOTE | 2016-11-02 09:03 | P.PN ---
Subjective Principal diagnosis: afib, persistent, cardiomyopathy Patient is doing well. He is lying comfortably in bed but he did get up and walk around. While his groins are sore especially the left side there is no hematoma. He has a sore throat but he has no chest discomfort. He feels a vague sensation the chest when he takes a deep breath but otherwise he has no dizziness lightheadedness no breathing trouble His vitals are stable, blood pressure 103/61 and 116/91 mmHg respirations are normal 16-18/m pulse rate is in the 90s irregular temperature normal 97.2F Heart sounds are irregular but normal no murmurs no gallops no rub Abdomen is soft nontender Heart sounds/that breath sounds are normal equal bilaterally no rhonchi no crackles Groin is tender but no hematoma, extremities warm no edema Impression Persistent atrial fibrillation refractory treatment, status post pulmonary vein isolation yesterday Atrial fibrillation did not terminate with pulmonary vein isolation Yesterday evening since his QT interval was normal and renal function is within normal limits he was started on dofetilide 500 g and received 1 dose last evening and another dose this morning yesterday his follow-up ECG, 3 hours after the dofetilide dose shows organization of atrial fibrillation. Heart rate 112 beats a minute, QT interval is within normal limits Nonischemic cardiomyopathy with class II CHF, euvolemic but elevated LA pressures of about 30 mmHg an elevated RA pressures of about 25 mmHg Obstructive sleep apnea on treatment Morbid obesity On anticoagulation Plan Dofetilide 500 g twice daily and follow dofetilide protocol, continue anticoagulation increase spironolactone and add magnesium oxide Patient will remain in the hospital for any seizure dofetilide and possible electrical cardioversion on Objective - Vital Signs Vital signs: Vital Signs Temp 97.2 F L 11/02/16 04:00 Pulse 99 11/02/16 05:55 Resp 18 11/02/16 05:55 BP 113/73 11/02/16 05:55 Pulse Ox 95 11/02/16 05:55 Intake & Output 11/01/16 11/02/16 11/02/16 18:59 06:59 18:59 Intake Total 401 316 240 Output Total 750 900 Balance -349 -584 240 Weight 178 kg Intake: IV 401 316 Oral 240 Output: Urine 750 900 Other: Voiding Method Indwelling Catheter Toilet Urinal - Labs CBC & Chem 7: 11/02/16 05:35 11/02/16 05:35 Labs: Abnormal Lab Results - Last 24 Hours (Table) 11/01/16 11/02/16 Range/Units 12:50 05:35 WBC 15.9 H (3.8-10.6) k/uL Creatinine 0.65 L (0.66-1.25) mg/dL Glucose 109 H (74-99) mg/dL
[2016-11-02] MEDS: APIXABAN 5 MG TAB PO SCH ×2 (09:30→22:04)
[2016-11-02] MEDS: LISINOPRIL 5 MG TAB PO SCH (09:30)
[2016-11-02] MEDS: METOPROLOL SUCCINATE (ER) 50 MG TAB.ER.24H PO SCH (09:30)
[2016-11-02] MEDS: FLUoxetine HCL 20 MG CAP PO SCH (09:30)
[2016-11-02] MEDS: MAGNESIUM OXIDE 400 MG TAB PO SCH (11:46)
[2016-11-02] MEDS: SPIRONOLACTONE 25 MG TAB PO SCH (11:46)
[2016-11-02] MEDS ORDERED: MAGNESIUM SULFATE-D5W PMX 1 GM in DEXTROSE/WATER 1 100ML.BAG IVPB PRN (17:00)
[2016-11-02] MEDS ORDERED: DOFETILIDE 500 MCG CAP PO STA (18:15)
[2016-11-03] MEDS: HYDROcodone/APAP 5-325MG 1 EACH TAB PO PRN (05:43)
[2016-11-03] MEDS ORDERED: DOFETILIDE 500 MCG CAP PO ONE (06:00)
[2016-11-03 07:30] LABS: Anion Gap 8 mmol/L; Blood Urea Nitrogen 16 mg/dL (9-20); Calcium 8.9 mg/dL (8.4-10.2); Carbon Dioxide 28 mmol/L (22-30); Chloride 103 mmol/L (98-107); Glucose 93 mg/dL (74-99); Non-African American GFR(MDRD) >60 (>60 ml/min/1.73 sqM); Potassium 4.6 mmol/L (3.5-5.1); Sodium 139 mmol/L (137-145)
[2016-11-03] MEDS: LISINOPRIL 5 MG TAB PO SCH (08:52)
[2016-11-03] MEDS: MAGNESIUM OXIDE 400 MG TAB PO SCH (08:52)
[2016-11-03] MEDS: FLUoxetine HCL 20 MG CAP PO SCH (08:52)
[2016-11-03] MEDS: SPIRONOLACTONE 25 MG TAB PO SCH (08:52)
[2016-11-03] MEDS: METOPROLOL SUCCINATE (ER) 50 MG TAB.ER.24H PO SCH (08:52)
[2016-11-03] MEDS: APIXABAN 5 MG TAB PO SCH ×2 (08:52→20:39)
--- NOTE | 2016-11-03 11:57 | P.PN ---
Subjective Patient is lying flat in bed no shortness of breath no dizziness lightheadedness. Heart sounds are normal no rub no gallop breath sounds are normal no rhonchi no crackles abdomen is soft nontender extremities warm no edema Labs are reviewed, while the BUN is mildly increased creatinine stable at lites and normal magnesium and potassium are normal. Patient states he is drinking enough fluids Impression Morbid obesity Persistent atrial fibrillation Status post pulmonary isolation Currently on dofetilide 500 g twice daily QT interval was stable today Plan Electrical cardioversion tomorrow Dofetilide 500 g this evening Ambulate in the hallways, sitting up in a chair, incentive spirometry Patient was encouraged to get up to avoid atelectasis of the lungs post general anesthesia Objective - Vital Signs Vital signs: Vital Signs Temp 97.6 F 11/03/16 08:54 Pulse 76 11/03/16 08:54 Resp 18 11/03/16 08:54 BP 95/59 11/03/16 08:54 Pulse Ox 94 L 11/03/16 08:54 Intake & Output 11/02/16 11/03/16 11/03/16 18:59 06:59 18:59 Intake Total 684 100 360 Balance 684 100 360 Weight 178 kg Intake: Intake, IV Titration 100 Amount Magnesium Sulfate-D5w Pmx 100 1 gm In Dextrose/Water 1 100ml.bag @ 100 mls/hr IVPB DAILY PRN Rx#: [id number] Oral 684 360 Other: Voiding Method Toilet Toilet Toilet Urinal Urinal Urinal # Voids 2 - Labs CBC & Chem 7: 11/02/16 05:35 11/03/16 05:17
[2016-11-03] MEDS ORDERED: DOFETILIDE 500 MCG CAP PO STA (17:20)
[2016-11-04] MEDS ORDERED: DOFETILIDE 500 MCG CAP PO ONE (06:00)
[2016-11-04] MEDS: METOPROLOL SUCCINATE (ER) 50 MG TAB.ER.24H PO SCH (06:42)
[2016-11-04] MEDS: APIXABAN 5 MG TAB PO SCH ×2 (06:42→21:33)
[2016-11-04] MEDS: FLUoxetine HCL 20 MG CAP PO SCH (06:42)
[2016-11-04] MEDS: MAGNESIUM OXIDE 400 MG TAB PO SCH (06:42)
[2016-11-04] MEDS: LISINOPRIL 5 MG TAB PO SCH (06:42)
[2016-11-04 06:44] LABS: Anion Gap 8 mmol/L; Blood Urea Nitrogen 14 mg/dL (9-20); Calcium 8.8 mg/dL (8.4-10.2); Carbon Dioxide 29 mmol/L (22-30); Chloride 102 mmol/L (98-107); Glucose 86 mg/dL (74-99); Magnesium 1.8 mg/dL (1.6-2.3); Non-African American GFR(MDRD) >60 (>60 ml/min/1.73 sqM); Potassium 4.5 mmol/L (3.5-5.1); Sodium 139 mmol/L (137-145)
[2016-11-04] MEDS ORDERED: LACTATED RINGERS 1,000 ML IV ONE (09:35)
[2016-11-04] MEDS ORDERED: LIDOCAINE 1% INJ 10MG/ML (20 ML MDV) ONE (10:00)
[2016-11-04] MEDS ORDERED: PROPOFOL 10 MG/ML 20 ML VIAL IV ONE (10:00)
[2016-11-04] MEDS ORDERED: MIDAZOLAM 2 MG/2 ML VIAL ONE (10:00)
--- NOTE | 2016-11-04 10:41 | P.PCN ---
Preoperative Diagnosis: Procedure Electrical cardioversion after 6 doses of dofetilide 500 g every 12 Potassium 4.5 BUN 14 creatinine 0.8 magnesium 1.8 Indication Symptomatic persistent atrial fibrillation with associated cardiomyopathy despite adequate rate control Status post PVI Procedure Successful electrical cardioversion with a 360 J biphasic shock in the AP configuration Postprocedure 12-lead ECG shows sinus rhythm normal ID narrow QRS absolute QT interval of 440 ms on dofetilide 500 g twice daily Plan Continue anticoagulation with ELIQUIS 5 mg twice daily, continue dofetilide 500 g twice daily reduce Prozac 20 mg every morning continue metoprolol succinate 50 mg every morning spironolactone 50 mg daily and lisinopril 5 mg daily Monitor on telemetry and discharge planning for tomorrow if QT interval is normal Postoperative Diagnosis: Procedure(s) Performed: Implants: Anesthesia: MAC Disposition: floor Indications for Procedure: Operative Findings: Description of Procedure:
[2016-11-04] MEDS: SPIRONOLACTONE 25 MG TAB PO SCH (12:20)
[2016-11-04] MEDS: DOFETILIDE 500 MCG CAP PO SCH (17:55)
[2016-11-05] MEDS: DOFETILIDE 500 MCG CAP PO SCH (06:17)
[2016-11-05 06:39] VITALS: RESP 18; TEMP 98.2
[2016-11-05 07:03] LABS: Anion Gap 9 mmol/L; Blood Urea Nitrogen 13 mg/dL (9-20); Calcium 8.8 mg/dL (8.4-10.2); Carbon Dioxide 26 mmol/L (22-30); Chloride 101 mmol/L (98-107); Glucose 99 mg/dL (74-99); Magnesium 1.9 mg/dL (1.6-2.3); Non-African American GFR(MDRD) >60 (>60 ml/min/1.73 sqM); Potassium 4.6 mmol/L (3.5-5.1); Sodium 136 mmol/L (137-145)
[2016-11-05] MEDS: APIXABAN 5 MG TAB PO SCH (07:48)
[2016-11-05] MEDS: LISINOPRIL 5 MG TAB PO SCH (07:48)
[2016-11-05] MEDS: FLUoxetine HCL 20 MG CAP PO SCH (07:48)
[2016-11-05] MEDS: SPIRONOLACTONE 25 MG TAB PO SCH (07:49)
[2016-11-05] MEDS: MAGNESIUM OXIDE 400 MG TAB PO SCH (07:49)
[2016-11-05] MEDS: METOPROLOL SUCCINATE (ER) 50 MG TAB.ER.24H PO SCH (07:49)
[2016-11-05 07:55] VITALS: PULSE 66
[2016-11-05] MEDS ORDERED: ACETAMINOPHEN TAB 325 MG TAB PO PRN (08:10)
[2016-11-05] MEDS ORDERED: HYDROcodone/APAP 5-325MG 1 EACH TAB PO PRN (08:10)
[2016-11-05] MEDS ORDERED: TEMAZEPAM 15 MG CAP PO PRN (08:10)
[2016-11-05] MEDS ORDERED: HYDROmorphone 1 MG/ML 1 ML SYRINGE IVP PRN (08:10)
--- NOTE | 2016-11-05 11:23 | P.DS ---
Providers Attending physician: Gordo Isabel Primary care physician: [facility] Course: Patient is doing well. No chest discomfort no undue shortness of breath lying comfortably in bed ablating the hallways no arrhythmias. He is afebrile 98.2F pulse rate in the 60s respirations normal blood pressure 116/65 mmHg Breath sounds are normal no rhonchi no crackles Heart sounds S1 and S2 are normal no murmurs or gallops rhythm is regular Abdomen is soft nontender Extremities warm no edema Impression Persistent atrial fibrillation status post PVI and dofetilide initiated status post successful electrical cardioversion yesterday postprocedure QT interval was normal Today his absolute QT interval is less than 450 ms on dofetilide 500 mg twice daily I reviewed his labs potassium 4.6. Creatinine stable magnesium was 1.9 Plan Discharge home on his usual medications including anticoagulation with ELIQUIS with the following changes Dofetilide 500 g twice daily Increase spironolactone to 50 mrem by mouth daily Slow mag or magnesium oxide once daily Follow-up Holter monitor in 1 week and follow with Dr. Carl as scheduled Add a detailed discussion with him regarding dofetilide. A full dofetilide education was performed. I explained to him regarding kidney function, dofetilide interactions, hypokalemia and hypomagnesemia and the do's and don'ts associated with the use of dofetilide. Plan - Discharge Summary New Discharge Prescriptions: No Action [place]-3 Fatty Acids/Fish Oil [Fish Oil 1,000 mg Softgel] 1 cap PO DAILY Cholecalciferol [Vitamin D3] 1,000 unit PO DAILY Apixaban [Eliquis] 5 mg PO BID #60 tab Vitamin B Complex 1 cap PO DAILY FLUoxetine HCL [PROzac] 40 mg PO QAM Glucosam/Nicolas-Msm1/C/Jatinder/Bosw [Glucosamine-Chondroitin Tablet] 1 tab PO DAILY Ascorbic Acid [Vitamin C] 1,000 mg PO DAILY Spironolactone [Aldactone] 25 mg PO DAILY Lisinopril [Zestril] 5 mg PO QAM Metoprolol Succinate (ER) [Toprol XL] 50 mg PO QAM Discharge Medication List Cholecalciferol [Vitamin D3] 1,000 unit PO DAILY 07/21/16 [History] [place]cad[place]-3 Fatty Acids/Fish Oil [Fish Oil 1,000 mg Softgel] 1 cap PO DAILY [History] Apixaban [Eliquis] 5 mg PO BID #60 tab 07/23/16 [Rx] FLUoxetine HCL [PROzac] 40 mg PO QAM 08/24/16 [History] Glucosam/Nicolas-Msm1/C/Jatinder/Bosw [Glucosamine-Chondroitin Tablet] 1 tab PO DAILY 08/24/16 [History] Vitamin B Complex 1 cap PO DAILY 08/24/16 [History] Ascorbic Acid [Vitamin C] 1,000 mg PO DAILY 09/21/16 [History] Lisinopril [Zestril] 5 mg PO QAM 09/21/16 [History] Spironolactone [Aldactone] 25 mg PO DAILY 09/21/16 [History] Metoprolol Succinate (ER) [Toprol XL] 50 mg PO QAM 09/23/16 [History]
[2016-11-05 11:37] VITALS: BP 131/81
== END 2016-11-05 13:24 | disposition home or self-care (01) ==
LOC: CATHEP 12:29 → 6SEL 16:25 → CATHEP 11-05 13:24
PROVIDERS: ATTEND Internal Medicine Clinical Cardiac Electrophysiology
DX: I48.1 Persistent atrial fibrillation (principal); I42.8 Other cardiomyopathies; I10 Essential (primary) hypertension; E66.9 Obesity, unspecified; Z68.43 Body mass index [BMI] 50.0-59.9, adult; I50.9 Heart failure, unspecified; Z79.01 Long term (current) use of anticoagulants; Z79.899 Other long term (current) drug therapy; Z88.1 Allergy status to other antibiotic agents; Z88.0 Allergy status to penicillin
CPT/HCPCS: 94760; 93005; 85347; 92960; 93662; 93609; 93656; 80048 ×5; 83735 ×4; 85025; 85027; C1894 ×3; C1769 ×4; C1730 ×3; C1759; C1893; C1733; C1766; J2001 ×2; J2250 ×2; J0330; J2720; J1644 ×4; J1940; Q9967; J3010; J3475; J0131; J2370; J2704 ×2

== ENCOUNTER → 2017-04-13 | Outpatient (CLI) | payer BC, OTHER ==
[2017-04-13 14:28] LABS: Anion Gap 11 mmol/L; Blood Urea Nitrogen 13 mg/dL (9-20); Calcium 9.3 mg/dL (8.4-10.2); Carbon Dioxide 28 mmol/L (22-30); Chloride 102 mmol/L (98-107); Glucose 96 mg/dL (74-99); Magnesium 1.8 mg/dL (1.6-2.3); Potassium 4.8 mmol/L (3.5-5.1); Sodium 141 mmol/L (137-145)
== END | disposition home or self-care (01) ==
LOC: LABWHC1 13:55
PROVIDERS: ATTEND Internal Medicine Clinical Cardiac Electrophysiology
DX: I48.1 Persistent atrial fibrillation (principal)
CPT/HCPCS: 36415; 80048; 83735

== ENCOUNTER → 2018-06-30 | Outpatient (CLI) | payer SELFPAY ==
[2018-06-30 23:10] LABS: Anion Gap 7.7 mmol/L (4.00-12.00); Calcium 9.3 mg/dL (8.7-10.3); Carbon Dioxide 27.3 mmol/L (21.6-31.8); Magnesium 1.8 mg/dL (1.5-2.4); Potassium 4.3 mmol/L (3.5-5.5)
== END | disposition home or self-care (01) ==
LOC: LABWHC1 15:53
PROVIDERS: ATTEND Internal Medicine Clinical Cardiac Electrophysiology
DX: I48.91 Unspecified atrial fibrillation (principal); Z79.899 Other long term (current) drug therapy
CPT/HCPCS: 36415; 80048; 83735

== ENCOUNTER → 2019-03-01 | Outpatient (CLI) | payer BC ==
--- NOTE | 2019-03-01 12:33 | CT ---
EXAMINATION TYPE: CT brain wo con DATE OF EXAM: 03/01/2019 COMPARISON: None HISTORY: Headache CT DLP: 1162.8 mGycm. Automated Exposure Control for Dose Reduction was Utilized. TECHNIQUE: CT scan of the head is performed without contrast. FINDINGS: There is no acute intracranial hemorrhage, mass effect, or midline shift identified. The ventricles and sulci are within normal limits in size. The globes are intact and the visualized sin uses are remarkable for minimal inflammatory change in the sphenoid sinus. Cephalohematoma noted over the convexity. IMPRESSION: No acute intracranial hemorrhage, mass effect, or midline shift is seen.
== END | disposition home or self-care (01) ==
LOC: RADCTMAIN 11:46
PROVIDERS: ATTEND Family Medicine
DX: R51 Headache (principal)
CPT/HCPCS: 70450

== ENCOUNTER 2022-02-06 12:38 | Emergency (ER) | payer BC, OTHER ==
[2022-02-06 13:11] VITALS: BP 119/76; PULSE 74; RESP 16; TEMP 98.3
--- NOTE | 2022-02-06 13:32 | ED ---
General Adult HPI - General Chief complaint: Skin/Abscess/Foreign Body Stated complaint: swelling behind ear Time Seen by Provider: 02/06/22 13:13 Source: patient Mode of arrival: ambulatory Limitations: no limitations - History of Present Illness Initial comments: Dictation was produced using [employer] dictation software. please excuse any grammatical, word or spelling errors. Chief Complaint: 41-year-old male presents emergency Department with 1 day history of right mastoid pain History of Present Illness: Patient is a 41-year-old male woke up today with right mastoid pain. Patient denies any history of hearing loss. Denies any ear pain. Patient her headache and weakness in the past. No fever, chills or night sweats. Denies any previous rash to that area. The ROS documented in this emergency department record has been reviewed and confirmed by me. Those systems with pertinent positive or negative responses have been documented in the HPI. All other systems are other negative and/or noncontributory. PHYSICAL EXAM: General Impression: Alert and oriented x3, not in acute distress HEENT: Normocephalic atraumatic, extra-ocular movements intact, pupils equal and reactive to light bilaterally, mucous membranes moist. Right mastoid, no fluctuance, mildly erythematous with palpatory tenderness, external auditory canal on the right is unremarkable, no tenderness to the right year Cardiovascular: Heart regular rate and rhythm Chest: Able to complete full sentences, no retractions, no tachypnea Musculoskeletal: Pulses present and equal in all extremities, no peripheral edema Motor: no focal deficits noted Neurological: CN II-XII grossly intact, no focal motor or sensory deficits noted Skin: Intact with no visualized rashes Psych: Normal affect and mood ED course: 41-year-old male with 1 day history of right mastoid pain. Vital signs upon arrival are within acceptable limits. Right ear examination is unremarkable. No signs of otitis media to the right ear. Chart review was performed CT of the mastoids shows no significant abnormalities. Point of care ultrasound shows no abnormal fluid collection. There is concern of cellulitis over the skin overlying the mastoid. Patient will be prescribed clindamycin. Critical Care: no Critical Care time: n/a - Related Data Home Medications Medication Instructions Recorded Confirmed Cholecalciferol [Vitamin D3 (25 1,000 unit PO DAILY 07/21/16 11/01/16 Mcg = 1000 Iu)] [place]-3 Fatty Acids/Fish Oil [Fish 1 cap PO DAILY 07/21/16 11/01/16 Oil 1,000 mg Softgel] FLUoxetine HCL [PROzac] 40 mg PO QAM 08/24/16 11/01/16 Glucosam/Nicolas-Msm1/C/Jatinder/Bosw 1 tab PO DAILY 08/24/16 11/01/16 [Glucosamine-Chondroitin Tablet] Vitamin B Complex 1 cap PO DAILY 08/24/16 11/01/16 Ascorbic Acid [Vitamin C] 1,000 mg PO DAILY 09/21/16 11/01/16 lisinopriL [Zestril] 5 mg PO QAM 09/21/16 11/01/16 Metoprolol Succinate (ER) [Toprol 50 mg PO QAM 09/23/16 11/01/16 XL] Previous Rx's Medication Instructions Recorded Apixaban [Eliquis] 5 mg PO BID #60 tab 07/23/16 Dofetilide [Tikosyn] 500 mcg PO Q12HR@0700,1900 #1 cap 11/05/16 Magnesium Oxide [Mag-Ox] 400 mg PO DAILY #1 tab 11/05/16 Spironolactone [Aldactone] 50 mg PO DAILY #1 tab 11/05/16 Clindamycin [Cleocin] 450 mg PO Q6H 5 Days #45 cap 02/06/22 Allergies Allergy/AdvReac Type Severity Reaction Status Date / Time erythromycin base Allergy Rash/Hives Verified 02/06/22 13:11 Penicillins Allergy Rash/Hives Verified 02/06/22 13:11 Review of Systems ROS Statement: Those systems with pertinent positive or pertinent negative responses have been documented in the HPI. ROS Other: All systems not noted in ROS Statement are negative. Past Medical History Past Medical History: Atrial Fibrillation, Sleep Apnea/CPAP/BIPAP Additional Past Medical History / Comment(s): depression See Dr Isabel's H&P for cardiac hx History of Any Multi-Drug Resistant Organisms: None Reported Past Surgical History: Heart Catheterization, Hernia Repair, Tonsillectomy Past Anesthesia/Blood Transfusion Reactions: No Reported Reaction Past Psychological History: Depression Smoking Status: Former smoker Past Alcohol Use History: Occasional Past Drug Use History: None Reported - Past Family History Mother Family Medical History: Cancer Additional Family Medical History / Comment(s): Mother at age 52 from lung and throat cancer. Father Family Medical History: No Reported History Additional Family Medical History / Comment(s): Father is alive with no significant health problems. General Exam Limitations: no limitations Course Vital Signs 02/06/22 13:08 Temperature 98.3 F Pulse Rate 74 Respiratory 16 Rate Blood Pressure 119/76 O2 Sat by Pulse 98 Oximetry Disposition Clinical Impression: Cellulitis Disposition: HOME SELF-CARE Condition: Fair Instructions (If sedation given, give patient instructions): Cellulitis (ED) Prescriptions: Clindamycin [Cleocin] 450 mg PO Q6H 5 Days #45 cap Is patient prescribed a controlled substance at d/c from ED?: No Referrals: Paola Cabrrea MD [Primary Care Provider] - 1-2 days Time of Disposition: 14:09
--- NOTE | 2022-02-06 14:05 | CT ---
EXAMINATION TYPE: CT mastoid wo con DATE OF EXAM: 02/06/2022 COMPARISON: None HISTORY: RT mastoid pain CT DLP: 308.5 mGycm. Automated Exposure Control for Dose Reduction was Utilized. TECHNIQUE: CT scan of internal auditory canal is performed without contrast, thin cut axial images ar e obtained, coronal reformatted images are also reviewed. FINDINGS: The external auditory canals are patent bilaterally. Mastoid air cells show no evidence of abnormal opacification bilaterally. The middle ear ossicles are symmetric and unremarkable. There is no evidence of suspicious surrounding soft tissue density to suggest cholesteatoma. The scutum is preserved bilaterally. The cochlea and the semicircular canals are symmetric and unremarkable. Ves tibular aqueduct and internal carotid canal appear unremarkable. Temporomandibular joints are maintained bilaterally. Visualized paranasal sinuses are grossly clear. Visualized portion brain parenchyma is felt within normal limits. IMPRESSION: No significant abnormality seen to account for patient's symptoms.
== END 2022-02-06 14:21 | disposition home or self-care (01) ==
LOC: EC 12:38
DX: H60.11 Cellulitis of right external ear (principal); Z87.891 Personal history of nicotine dependence; I48.91 Unspecified atrial fibrillation; Z88.1 Allergy status to other antibiotic agents; Z88.0 Allergy status to penicillin; Z79.01 Long term (current) use of anticoagulants
CPT/HCPCS: 70486; 99283